=== PATIENT | male | born 1950 | race Caucasian/White ===

== ENCOUNTER 2017-02-05 17:36 | Inpatient (IN) | payer MEDICARE, OTHER ==
[~2017-02-05] VITALS: Ht 157.5 cm; Wt 59.9 kg
[2017-02-05] MEDS ORDERED: Vancomycin 1 GM in NS 275 ML IV ONE (17:45)
[2017-02-05] MEDS ORDERED: Ampicillin/Sulbactam Sod 3 GM in NS 110 ML IV SCH (17:45)
[2017-02-05] MEDS ORDERED: ZINC30 M1 GT (17:50)
[2017-02-05] MEDS ORDERED: ACETAMINOPHEN325 M1 GT (17:50)
[2017-02-05] MEDS ORDERED: MIDODRINE HCL10 MG GT (17:50)
[2017-02-05] MEDS ORDERED: MULTIVITAMINS1 EAC8 GT (17:50)
[2017-02-05] MEDS ORDERED: LEVETIRACETAM500 MG GT (17:50)
[2017-02-05] MEDS ORDERED: NORCO 10-325 T1 EACH GT (17:50)
[2017-02-05 17:52] VITALS: BP 113/65
[2017-02-05] MEDS ORDERED: Vancomycin 1gm inj IVPB ONE (17:55)
[2017-02-05] MEDS ORDERED: Unasyn 3gm Inj ONE (17:55)
[2017-02-05 18:08] LABS: ABG PCO2 42.6 mmHg (35.0-45.0)
[2017-02-05 18:09] LABS: KETONES,URINE NEGATIVE (NEGATIVE); LEUKOCYTE ESTERASE ,URINE 3+ (NEGATIVE); NITRITE,URINE POSITIVE (NEGATIVE); PH,URINE 9 (4.5-8.0); PROTEIN,URINE 3+ (NEGATIVE); UROBILINOGEN,URINE NORMAL MG/DL (0.0-1.0)
[2017-02-05 18:09] LABS: ABG ALLEN TEST POSITIVE; ABG BASE EXCESS 4.6
[2017-02-05 18:10] LABS: APPEARANCE,URINE CLOUDY
[2017-02-05 18:24] LABS: BASOPHILS % (AUTO) 1.2 % (0.0-2.0); EOSINOPHILS % (AUTO) 7.9 % (0.0-3.0); LYMPHOCYTES % (AUTO) 15.1 % (20.0-45.0); MEAN CORPUSCULAR HEMOGLOBIN 26.7 PG (27.0-31.0); MEAN CORPUSCULAR HGB CONC 32.4 G/DL (32.0-36.0); MEAN CORPUSCULAR VOLUME 82 FL (80-99); MEAN PLATELET VOLUME 5.1 FL (6.5-10.1); MONOCYTES % (AUTO) 8.3 % (1.0-10.0); NEUTROPHILS % (AUTO) 67.6 % (45.0-75.0); PLATELET COUNT 258 K/UL (150-450); RED BLOOD COUNT 3.85 M/UL (4.70-6.10); WHITE BLOOD COUNT 11.1 K/UL (4.8-10.8)
[2017-02-05 18:26] LABS: ALANINE AMINOTRANSFERASE 51 U/L (3-41); ALBUMIN/GLOBULIN RATIO 0.5 (1.0-2.7); ANION GAP 9 (5-15); ASPARTATE AMINO TRANSFERASE 39 U/L (5-40); CALCIUM 9.7 mg/dL (8.6-10.2); CARBON DIOXIDE 28 mEQ/L (20-30); CHLORIDE 96 mEQ/L (98-107); CREATININE 0.4 mg/dL (0.7-1.2); GLOMERULAR FILTRATION RATE > 60 mL/min (>60); HEMOLYSIS 5; SODIUM 133 mEQ/L (135-145); TOTAL PROTEIN 8.3 g/dL (6.6-8.7); TROPONIN I < 0.30 ng/mL (<=0.30)
[2017-02-05 18:29] LABS: RBC,URINE 20-30 /HPF (0 - 0)
[2017-02-05 18:30] LABS: BACTERIA,URINE MANY /HPF; WBC,URINE 0-2 /HPF (0 - 0)
[2017-02-05 18:36] LABS: CKMB 3.9 ng/mL (< 6.7)
[2017-02-05 19:06] VITALS: BP 118/63
[2017-02-05 20:00] VITALS: BP 107/68
[2017-02-05 21:00] VITALS: BP 103/62
[2017-02-05 22:00] VITALS: BP 120/89
[2017-02-05] MEDS ORDERED: LORazepam 0.5mg tab GT PRN (22:00)
[2017-02-05] MEDS ORDERED: Acetaminophen 650mg/20.3ml GT PRN (22:00)
[2017-02-05] MEDS ORDERED: Norco 10mg/325mg tab GT PRN (22:00)
[2017-02-05 23:00] VITALS: BP 104/71
[2017-02-05] MEDS: metroNIDAZOLE 500mg tab GT SCH (23:00)
[2017-02-06] VITALS (17 sets, daily range): BP systolic 85–135; BP diastolic 46–70
[2017-02-06] MEDS ORDERED: Zosyn 4.5gm inj ONE (00:25)
[2017-02-06] MEDS: Zosyn 4.5gm q8h **Extended infusion IVPB SCH ×4 (00:31→08:13)
--- NOTE | 2017-02-06 01:31 | Emergency Room Report ---
History of Present Illness General Chief Complaint: General Complaint Source: Medical Record Present Illness HPI Patient is 66-year-old male brought in by EMS after increased fever decreased blood pressure. The patient prior history of multidrug-resistant infections to decubitus ulcers. Patient had been noted to have a prior history of tracheostomy and ventilator dependence. Patient was not verbal. Patient had gradually worsening blood pressure. Patient was brought in by EMS. Patient presented from nursing facility. The patient appears to have a rectal tube and had a previous persistent infections to decubitus ulcers. Allergies: Coded Allergies: No Known Allergies (Unverified , 02/05/17) Patient History Past Medical History: see triage record Reviewed Nursing Documentation: PMH: Agreed, PSxH: Agreed Nursing Documentation-PMH Past Medical History Deferred: Pt Cognitively Impaired Past Medical History: No History, Except For Hx Cardiac Problems: Yes Hx Hypertension: Yes Hx Cancer: No Hx Gastrointestinal Problems: Yes - PEG Hx Neurological Problems: Yes Hx Cerebrovascular Accident: Yes Hx Dementia: Yes Hx Alzheimer's Disease: Yes Hx Seizures: Yes Hx Paralysis: Yes Hx Memory Loss: Yes Hx Speech Problem: Yes Hx Aphasia: Yes Review of Systems All Other Systems: limited - by mental status Physical Exam Vital Signs Date Time Temp Pulse Resp B/P Pulse Ox O2 Delivery O2 Flow Rate FiO2 02/05/17 17:30 97.2 90 14 86/52 97 Mechanical Ventilator 02/05/17 17:49 30 General Appearance: moderate distress, thin, Chronically Ill ENT: dry mucus membranes Neck: limited range of motion Respiratory: decreased breath sounds Cardiovascular #1: no JVD, tachycardia Gastrointestinal: normal inspection, non tender, soft Musculoskeletal: decreased range of motion Neurologic: motor weakness Skin: other - decubitus ulcer Medical Decision Making Diagnostic Impression: Primary Impression: Sepsis associated hypotension Additional Impressions: Infected decubitus ulcer Tracheostomy dependence Chronic respiratory failure ER Course Patient presented for fever and hypotension. Differential diagnosis included wasn't limited to pneumonia, decubitus ulcer,urinary tract infection, drug fever , allergic reaction, sepsis, cholecystitis, among others.Because of complexity of patient's case laboratory testing and imaging studies were ordered.the patient noted have a fever. The patient was given IV fluid. The patient was noted to have improvement in his hypotension after initial IV fluids. Patient given IV antibiotics empirically. Laboratory studies were notable for normal lactic acid level. The patient's initial blood gas showed adequate oxygenation as well as the normal pH. Dr. Sandrine Jin was contacted for inpatient management. Labs Test 02/05/17 17:33 02/05/17 17:43 White Blood Count 11.1 K/UL (4.8-10.8) Red Blood Count 3.85 M/UL (4.70-6.10) Hemoglobin 10.3 G/DL (14.2-18.0) Hematocrit 31.7 % (42.0-52.0) Mean Corpuscular Volume 82 FL (80-99) Mean Corpuscular Hemoglobin 26.7 PG (27.0-31.0) Mean Corpuscular Hemoglobin Concent 32.4 G/DL (32.0-36.0) Red Cell Distribution Width 16.0 % (11.6-14.8) Platelet Count 258 K/UL (150-450) Mean Platelet Volume 5.1 FL (6.5-10.1) Neutrophils (%) (Auto) 67.6 % (45.0-75.0) Lymphocytes (%) (Auto) 15.1 % (20.0-45.0) Monocytes (%) (Auto) 8.3 % (1.0-10.0) Eosinophils (%) (Auto) 7.9 % (0.0-3.0) Basophils (%) (Auto) 1.2 % (0.0-2.0) Urine Color Yellow Urine Appearance Cloudy Urine pH 9 (4.5-8.0) Urine Specific [place] 1.010 (1.005-1.035) Urine Protein 3+ (NEGATIVE) Urine Glucose (UA) Negative (NEGATIVE) Urine Ketones Negative (NEGATIVE) Urine Occult Blood 5+ (NEGATIVE) Urine Nitrite Positive (NEGATIVE) Urine Bilirubin Negative (NEGATIVE) Urine Urobilinogen Normal MG/DL (0.0-1.0) Urine Leukocyte Esterase 3+ (NEGATIVE) Urine RBC 20-30 /HPF (0 - 0) Urine WBC 0-2 /HPF (0 - 0) Urine Squamous Epithelial Cells None /LPF (NONE/OCC) Urine Bacteria Many /HPF (NONE) Sodium Level 133 mEQ/L (135-145) Potassium Level 4.0 mEQ/L (3.4-4.9) Chloride Level 96 mEQ/L (98-107) Carbon Dioxide Level 28 mEQ/L (20-30) Anion Gap 9 (5-15) Blood Urea Nitrogen 25 mg/dL (7-23) Creatinine 0.4 mg/dL (0.7-1.2) Estimat Glomerular Filtration Rate > 60 mL/min (>60) Glucose Level 112 mg/dL (74-106) Lactic Acid Level 0.80 mmol/L (0.66-2.22) Calcium Level 9.7 mg/dL (8.6-10.2) Total Bilirubin < 0.2 mg/dL (0.0-1.2) Aspartate Amino Transf (AST/SGOT) 39 U/L (5-40) Alanine Aminotransferase (ALT/SGPT) 51 U/L (3-41) Alkaline Phosphatase 113 U/L (40-129) Total Creatine Kinase 114 U/L (38-174) Creatine Kinase MB 3.9 ng/mL (< 6.7) Creatine Kinase MB Relative Index 3.4 Troponin I < 0.30 ng/mL (<=0.30) Total Protein 8.3 g/dL (6.6-8.7) Albumin 3.0 g/dL (3.5-5.2) Globulin 5.3 g/dL Albumin/Globulin Ratio 0.5 (1.0-2.7) Arterial Blood pH 7.451 (7.350-7.450) Arterial Blood Partial Pressure CO2 42.6 mmHg (35.0-45.0) Arterial Blood Partial Pressure O2 118.1 mmHg (75.0-100.0) Arterial Blood HCO3 29.0 mmol/L (22.0-26.0) Arterial Blood Oxygen Saturation 97.8 % (92.0-98.0) Arterial Blood Base Excess 4.6 Chris Test Positive EKG Diagnostic Results Rate: normal Rhythm: NSR - 96 ST Segments: no acute changes Last Vital Signs Date Time Temp Pulse Resp B/P Pulse Ox O2 Delivery O2 Flow Rate FiO2 02/06/17 00:52 90 21 30 02/06/17 00:00 98.2 85/65 100 Mechanical Ventilator Status: unchanged Disposition: ADMITTED INPATIENT Condition: Serious Referrals: SANDRINE JIN (PCP) Ezekiel Marin Feb 06, 2017 01:31
[2017-02-06 05:02] LABS: EOSINOPHILS % (AUTO) 12.4 % (0.0-3.0); LYMPHOCYTES % (AUTO) 15.9 % (20.0-45.0); MEAN CORPUSCULAR HEMOGLOBIN 26.7 PG (27.0-31.0); MEAN CORPUSCULAR HGB CONC 32.5 G/DL (32.0-36.0); MEAN CORPUSCULAR VOLUME 82 FL (80-99); MEAN PLATELET VOLUME 5.5 FL (6.5-10.1); MONOCYTES % (AUTO) 9.3 % (1.0-10.0); NEUTROPHILS % (AUTO) 61.4 % (45.0-75.0); PLATELET COUNT 242 K/UL (150-450); RED BLOOD COUNT 3.24 M/UL (4.70-6.10)
[2017-02-06 05:23] LABS: CALCIUM 9.1 mg/dL (8.6-10.2); CARBON DIOXIDE 26 mEQ/L (20-30); CHLORIDE 103 mEQ/L (98-107); CREATININE 0.2 mg/dL (0.7-1.2); GLOMERULAR FILTRATION RATE > 60 mL/min (>60); HEMOLYSIS 2; SODIUM 138 mEQ/L (135-145)
[2017-02-06 05:52] LABS: ANION GAP 9 (5-15); POTASSIUM 3.8 mEQ/L (3.4-4.9)
[2017-02-06] MEDS: metroNIDAZOLE 500mg tab GT SCH ×4 (05:54→22:38)
[2017-02-06] MEDS ORDERED: Vancomycin 750mg/D5W 275ml IVPB SCH ×4 (07:00→20:00)
[2017-02-06] MEDS: Midodrine 10mg tab GT SCH ×3 (08:12→17:35)
[2017-02-06 08:26] LABS: ABG PCO2 37.3 mmHg (35.0-45.0)
[2017-02-06 08:27] LABS: ABG ALLEN TEST POSITIVE; ABG BASE EXCESS 2.1
--- NOTE | 2017-02-06 08:36 | Consultation ---
Consult Note Consult Note 66-year-old male brought in by EMS with noted fevers and decreased blood pressure. The patient prior history of multidrug-resistant infections to decubitus ulcers. Patient had been noted to have a prior history of tracheostomy and ventilator dependence. Patient overall non-verbal. Patient had gradually worsening blood pressure drop and was transferred. Patient was brought in by EMS. Patient presented from nursing facility. The patient care discussed in detail with the . Patient is chronically debilitated and bed bound. Patient recently with transfer to the SNF and had a stormy hospital course. Patient care discussed. Allergies/MEDS: reviewed No Known Allergies (Unverified , 02/05/17) Past Medical History: Respiratory failure, Tracheostomy, CVA, PEG, Dementia, seizures, aphasia, orthostatic hypotension Reviewed of systems: unable Physical exam: WDWN NAD clear breath sounds bilaterally without rhonchi or wheeze [id number] without MRG NABS nontender no HSM, GT no CCE contractures nonfocal Laboratory Tests Test 02/05/17 17:33 02/05/17 17:43 02/06/17 03:57 02/06/17 08:18 White Blood Count 11.1 K/UL (4.8-10.8) H 8.0 K/UL (4.8-10.8) Red Blood Count 3.85 M/UL (4.70-6.10) L 3.24 M/UL (4.70-6.10) L Hemoglobin 10.3 G/DL (14.2-18.0) L 8.6 G/DL (14.2-18.0) L Hematocrit 31.7 % (42.0-52.0) L 26.6 % (42.0-52.0) L Mean Corpuscular Volume 82 FL (80-99) 82 FL (80-99) Mean Corpuscular Hemoglobin 26.7 PG (27.0-31.0) L 26.7 PG (27.0-31.0) L Mean Corpuscular Hemoglobin Concent 32.4 G/DL (32.0-36.0) 32.5 G/DL (32.0-36.0) Red Cell Distribution Width 16.0 % (11.6-14.8) H 16.0 % (11.6-14.8) H Platelet Count 258 K/UL (150-450) 242 K/UL (150-450) Mean Platelet Volume 5.1 FL (6.5-10.1) L 5.5 FL (6.5-10.1) L Neutrophils (%) (Auto) 67.6 % (45.0-75.0) 61.4 % (45.0-75.0) Lymphocytes (%) (Auto) 15.1 % (20.0-45.0) L 15.9 % (20.0-45.0) L Monocytes (%) (Auto) 8.3 % (1.0-10.0) 9.3 % (1.0-10.0) Eosinophils (%) (Auto) 7.9 % (0.0-3.0) H 12.4 % (0.0-3.0) H Basophils (%) (Auto) 1.2 % (0.0-2.0) 1.0 % (0.0-2.0) Urine Color Yellow Urine Appearance Cloudy Urine pH 9 (4.5-8.0) Urine Specific [place] 1.010 (1.005-1.035) Urine Protein 3+ (NEGATIVE) H Urine Glucose (UA) Negative (NEGATIVE) Urine Ketones Negative (NEGATIVE) Urine Occult Blood 5+ (NEGATIVE) H Urine Nitrite Positive (NEGATIVE) H Urine Bilirubin Negative (NEGATIVE) Urine Urobilinogen Normal MG/DL (0.0-1.0) Urine Leukocyte Esterase 3+ (NEGATIVE) H Urine RBC 20-30 /HPF (0 - 0) H Urine WBC 0-2 /HPF (0 - 0) Urine Squamous Epithelial Cells None /LPF (NONE/OCC) Urine Bacteria Many /HPF (NONE) H Sodium Level 133 mEQ/L (135-145) L 138 mEQ/L (135-145) Potassium Level 4.0 mEQ/L (3.4-4.9) 3.8 mEQ/L (3.4-4.9) Chloride Level 96 mEQ/L (98-107) L 103 mEQ/L (98-107) Carbon Dioxide Level 28 mEQ/L (20-30) 26 mEQ/L (20-30) Anion Gap 9 (5-15) 9 (5-15) Blood Urea Nitrogen 25 mg/dL (7-23) H 18 mg/dL (7-23) Creatinine 0.4 mg/dL (0.7-1.2) L 0.2 mg/dL (0.7-1.2) L Estimat Glomerular Filtration Rate > 60 mL/min (>60) > 60 mL/min (>60) Glucose Level 112 mg/dL (74-106) H 108 mg/dL (74-106) H Lactic Acid Level 0.80 mmol/L (0.66-2.22) 0.70 mmol/L (0.66-2.22) Calcium Level 9.7 mg/dL (8.6-10.2) 9.1 mg/dL (8.6-10.2) Total Bilirubin < 0.2 mg/dL (0.0-1.2) Aspartate Amino Transf (AST/SGOT) 39 U/L (5-40) Alanine Aminotransferase (ALT/SGPT) 51 U/L (3-41) H Alkaline Phosphatase 113 U/L (40-129) Total Creatine Kinase 114 U/L (38-174) Creatine Kinase MB 3.9 ng/mL (< 6.7) Creatine Kinase MB Relative Index 3.4 Troponin I < 0.30 ng/mL (<=0.30) Total Protein 8.3 g/dL (6.6-8.7) Albumin 3.0 g/dL (3.5-5.2) L Globulin 5.3 g/dL Albumin/Globulin Ratio 0.5 (1.0-2.7) L Arterial Blood pH 7.451 (7.350-7.450) 7.460 (7.350-7.450) Arterial Blood Partial Pressure CO2 42.6 mmHg (35.0-45.0) 37.3 mmHg (35.0-45.0) Arterial Blood Partial Pressure O2 118.1 mmHg (75.0-100.0) H 150.7 mmHg (75.0-100.0) H Arterial Blood HCO3 29.0 mmol/L (22.0-26.0) H 25.9 mmol/L (22.0-26.0) Arterial Blood Oxygen Saturation 97.8 % (92.0-98.0) 98.6 % (92.0-98.0) H Arterial Blood Base Excess 4.6 2.1 Chris Test Positive Positive IMPRESSION Respiratory Failure Trach Contractures multiple decubs GT Seizure disorder moderate protein calorie malnutrition chronic encephalopathy anemia PLAN care noted IV antibiotics respiratory care Ventilatory care noted SNF meds supportive care suction ID evaluation wound care oxygen therapy prognosis guarded d/w in detail medications/laboratory data/nursing notes/ICU care reviewed in detail note reviewed and edited care discussed with RN and RT ICU time spent minutes SANDRINE WEI Feb 06, 2017 08:36
[2017-02-06] MEDS ORDERED: Magnesium Oxide 400mg tab GT SCH (09:00)
[2017-02-06] MEDS ORDERED: Multivitamins W/Minerals 15 ML UDC GT SCH (09:00)
[2017-02-06] MEDS ORDERED: Heparin 5000 units/ml inj SUBQ SCH (09:00)
[2017-02-06] MEDS ORDERED: Zinc Sulfate 220mg cap GT SCH (09:00)
[2017-02-06] MEDS ORDERED: Ascorbic Acid 500mg tab GT SCH (09:00)
--- NOTE | 2017-02-06 10:38 | Diagnostic Imaging Report ---
Indication: Shortness of breath Technique: XRAY CHEST 1 V Comparison: None Findings: Tracheostomy is seen. Cardiomediastinal silhouette is within normal limits. Mild bilateral interstitial edema/infiltrates are noted. Generative changes of the spine are seen. Impression: Mild interstitial edema or infiltrates. Clinical correlation/followup recommended.
--- NOTE | 2017-02-06 10:47 | Diagnostic Imaging Report ---
Indication: Shortness of breath Technique: XRAY CHEST 1 V Comparison: 02/05/17 Findings: Tracheostomy is seen. Cardiomediastinal silhouette is stable. Lungs are unchanged without new infiltrates. Osseous structures are stable. Impression: No interval change from 02/05/17.
--- NOTE | 2017-02-06 12:00 | History and Physical Report ---
DATE OF ADMISSION: 02/05/2017 CHIEF COMPLAINT: Sepsis, respiratory failure, and toxic metabolic encephalopathy. HISTORY OF PRESENT ILLNESS: The patient is an unfortunate 66-year-old male, who has a prior history of chronic respiratory failure, trach and vent dependent, anoxic encephalopathy, multiple decubitus ulcers, DVT, history of stroke, protein malnutrition, anemia, and seizure disorder. He has a history of DVT, status post IVC filter. He was transferred from the [facility] nursing facility with complaints of fever and hypotension. On evaluation in the emergency room, the patient is noted to have white count of 11,000. The patient was started on IV fluids for his hypotension. Broad-spectrum IV antibiotics also initiated. The patient has pancultures and is now admitted for further evaluation and care. PAST MEDICAL HISTORY: As above. PAST SURGICAL HISTORY: Includes a history of tracheostomy, G-tube, and IVC filter. CURRENT MEDICATIONS: Reconciled and reviewed. ALLERGIES: None. FAMILY HISTORY: Unknown. SOCIAL HISTORY: There is no known history of tobacco, ethanol, or drugs. The patient is a Full Code. REVIEW OF SYSTEMS: From the patient is unobtainable as he is nonverbal at baseline. PHYSICAL EXAMINATION: VITAL SIGNS: Temperature is 98.9 degrees, pulse 94, respirations 15, and blood pressure 135/63. GENERAL: The patient is a chronic ill-appearing male, in no apparent distress. He is poorly responsive. His eyes are open, but he does not tract or follow commands. NECK: Supple. Trach site is clean. HEART: Regular rate and rhythm. LUNGS: Lungs are clear. ABDOMEN: Soft, nontender, and nondistended. EXTREMITIES: Without clubbing or cyanosis. The patient has multiple wounds including a large one over the left hip with some slough. PERTINENT DATA: White count was 11, hemoglobin 10, hematocrit 31, and platelets 258,00. Sodium is , potassium 4, chloride 96, bicarbonate 28, BUN 25, and creatinine is 0.4. UA showed 0 to 2 WBCs. Chest x-ray results are currently pending. ASSESSMENT: This is an unfortunate male with a history of anoxic encephalopathy, dementia, chronic respiratory failure, history of deep vein thrombosis, status post inferior vena cava filter, dementia, and functional quadriplegia, admitted with complaints of fevers, hypotension, and sepsis, unclear etiology. X-ray results are currently pending. Would not be surprised if the patient had pneumonia and also the left hip wound has a lot of slough and there may be superinfection of the wound. PLAN: Broad-spectrum IV antibiotics. Infectious Disease consultation. Consider for wound debridement. Continue G-tube feeds. Continue vent support. Continue respiratory treatments. Kirill Moody M.D. DR: ERYN JOB#: [id number] CC:
--- NOTE | 2017-02-06 12:00 | Consultation ---
DATE OF CONSULTATION: 02/06/2017 INFECTIOUS DISEASES CONSULTATION CONSULTING PHYSICIAN: Stefania Calix M.D. REFERRING PHYSICIAN: Eitan Jin M.D. REASON FOR CONSULTATION: Septic shock. HISTORY OF PRESENTING ILLNESS: This is a 66-year-old gentleman with history of respiratory failure, status post tracheostomy, CVA, dementia, and seizures, who came in [facility] with hypot[facility]. He seen in [facility]. He has had multiple decubitus ulcers. An Infectious Diseases consultation has been obtained for antibiotics. PAST MEDICAL HISTORY: 1. History of respiratory failure, status post tracheostomy. 2. Hypertension. 3. Status post G-tube placement. 4. CVA. 5. Dementia. 6. Seizures. SOCIAL HISTORY: Unknown. FAMILY HISTORY: Unknown. REVIEW OF SYSTEMS: Unable to obtain currently. MEDICATIONS: As an inpatient, the patient is on Prevacid, Keppra, midodrine, multivitamin, ascorbic acid, zinc sulfate, subcutaneous heparin, magnesium oxide, IV vancomycin, Zosyn, Flagyl, Tylenol, [place], Ativan, and Zofran. ALLERGIES: No known drug allergies. PHYSICAL EXAMINATION: VITAL SIGNS: Temperature of 98.9 and T-max of 99.1, pulse of 85, respiratory rate of 19, blood pressure 121/65, and O2 saturation of 100%. HEENT: Pupils are equally reactive to light and accommodation. Mouth appears clean without thrush. NECK: Supple. No adenopathy. No JVD. CARDIOVASCULAR: Regular rate and rhythm. No murmurs. LUNGS: Clear to auscultation bilaterally. No crackles. No wheezes. But I mentioned tracheostomy site is clean. ABDOMEN: Soft and nontender. G-tube site appears clean. EXTREMITIES: No cyanosis, no clubbing, no edema. SKIN: Sacral decubitus ulcer noted which is clean. LABORATORY AND DIAGNOSTIC DATA: White count of 8, hemoglobin 8.6, hematocrit 26.6, MCV 82, and platelet count of 242,000 with neutrophils of 61%. Sodium 138, potassium 3.8, chloride 103, bicarb 26, BUN 18, creatinine 0.2, glucose 108, and calcium 9.1. Total bilirubin less than 0.2, AST 39, ALT 51, and alkaline phosphatase 113. CK 114. CK-MB 3.9. Troponin less than 0.3. Total protein 8.3. Albumin of 3. UA showing 0 to 2 white cells. Urine culture growing gram-negative rods more than 100,000 colonies. Chest x-ray showing mild interstitial edema or infiltrate. ASSESSMENT: This is a 66-year-old gentleman with history of respiratory failure, status post tracheostomy and seizures who comes in with: 1. Gram-negative urinary tract infection. 2. We would be concerned regarding sepsis secondary to urinary tract infection. 3. He could also have an aspiration pneumonia. PLAN: 1. Continue vancomycin, Zosyn, and Flagyl. 2. We will follow up cultures and adjust antibiotics accordingly. I would like to thank, Dr. Jin for this consultation. Stefania Calix M.D. DR: ALCON JOB#: [id number] CC:
[2017-02-06] MEDS: Piperacillin/Tazobactam 4.5 GM in D5W 110 ML IVPB SCH (15:48)
[2017-02-06] MEDS ORDERED: LORazepam 0.5mg tab GT PRN (16:00)
[2017-02-06] MEDS ORDERED: Acetaminophen 650mg/20.3ml GT PRN (18:00)
[2017-02-06] MEDS ORDERED: Vancomycin 750 MG in D5W 275 ML IVPB SCH (20:00)
[2017-02-06] MEDS ORDERED: Norco 10mg/325mg tab GT PRN (21:00)
[2017-02-06] MEDS: Heparin 5000 units/ml inj SUBQ SCH (21:59)
[2017-02-07] VITALS (7 sets, daily range): BP systolic 91–130; BP diastolic 48–71
[2017-02-07] MEDS: Piperacillin/Tazobactam 4.5 GM in D5W 110 ML IVPB SCH ×4 (00:08→23:39)
[2017-02-07] MEDS: metroNIDAZOLE 500mg tab GT SCH ×3 (06:13→21:13)
--- NOTE | 2017-02-07 08:07 | Pulmonology Progress Note ---
Assessment/Plan Assessment/Plan IMPRESSION Respiratory Failure Trach Contractures multiple decubs GT Seizure disorder moderate protein calorie malnutrition chronic encephalopathy anemia UTI PLAN care noted and discussed IV antibiotics respiratory care Ventilatory care noted SNF meds supportive care suction ID evaluation noted wound care as is rectal tube oxygen therapy prognosis guarded d/w in detail Subjective Allergies: Coded Allergies: No Known Allergies (Unverified , 02/05/17) Subjective care noted d/w transferred to [facility] Objective Last 24 Hour Vital Signs Date Time Temp Pulse Resp B/P Pulse Ox O2 Delivery O2 Flow Rate FiO2 02/07/17 06:45 81 14 28 02/07/17 05:23 83 17 28 02/07/17 04:00 28 02/07/17 04:00 98.6 83 20 127/62 100 Mechanical Ventilator 02/07/17 04:00 83 02/07/17 03:07 86 19 28 02/07/17 00:58 83 17 28 02/07/17 00:00 81 02/07/17 00:00 81 15 28 02/07/17 00:00 28 02/06/17 23:32 98.1 82 20 97/55 100 Mechanical Ventilator 02/06/17 21:30 85 15 28 02/06/17 20:00 80 02/06/17 20:00 98.7 93 20 91/49 100 Mechanical Ventilator 02/06/17 20:00 28 02/06/17 19:13 81 15 Mechanical Ventilator 02/06/17 19:09 81 15 28 02/06/17 17:20 79 16 28 02/06/17 16:55 83 02/06/17 15:56 28 02/06/17 15:56 85 20 108/70 100 Mechanical Ventilator 02/06/17 15:20 80 15 28 02/06/17 13:20 86 16 28 02/06/17 13:00 85 19 122/65 100 Mechanical Ventilator 02/06/17 12:00 98.4 86 16 106/51 100 Mechanical Ventilator 02/06/17 12:00 28 02/06/17 12:00 86 02/06/17 11:10 88 15 28 02/06/17 11:00 85 19 121/65 100 Mechanical Ventilator 02/06/17 10:00 79 18 114/48 100 Mechanical Ventilator 02/06/17 09:10 87 16 28 02/06/17 09:00 89 17 110/53 100 Mechanical Ventilator 28 Intake and Output 02/06/17 02/07/17 19:00 07:00 Intake Total 2030.0 ml 2333.316 ml Output Total 880 ml 1300 ml Balance 1150.0 ml 1033.316 ml Free Water 150 ml IV Total 1340.0 ml 1633.316 ml Tube Feeding 600 ml 550 ml Other 90 ml Output Urine Total 880 ml 1300 ml Objective WDWN chronically ill NAD coarse breath sounds bilaterally without rhonchi or wheeze [id number] without MRG NABS nontender no HSM; GT no CCE contractures trach nonfocal Microbiology Date/Time Source Procedure Growth Status 02/05/17 17:33 Blood Blood Culture - Preliminary NO GROWTH AFTER 24 HOURS Resulted 02/05/17 17:23 Blood Blood Culture - Preliminary NO GROWTH AFTER 24 HOURS Resulted 02/05/17 17:33 Urine,Clean Catch Urine Culture - Preliminary Gram Negative Esteban Resulted Laboratory Tests 02/06/17 08:18: Arterial Blood pH 7.460H, Arterial Blood Partial Pressure CO2 37.3, Arterial Blood Partial Pressure O2 150.7H, Arterial Blood HCO3 25.9, Arterial Blood Oxygen Saturation 98.6H, Arterial Blood Base Excess 2.1, Chris Test Positive 02/07/17 07:30: Vancomycin Level Trough [Pending] Current Medications Medications (Trade) Dose Ordered Sig/Mehdi Route PRN Reason Start Time Stop Time Status Last Admin Dose Admin Acetaminophen (Tylenol) 650 mg EVERY 6 HOURS PRN GT mild pain 02/06/17 18:00 03/08/17 17:59 Acetaminophen/ Hydrocodone Bitart ([place] 10/325) 1 ea EVERY 12 HOURS PRN GT Pain Scale (6-10) 02/06/17 21:00 02/13/17 20:59 Ascorbic Acid (Vitamin C) 500 mg DAILY GT 02/07/17 09:00 03/09/17 08:59 Heparin Sodium (Porcine) (Heparin 5000 units/ml) 5,000 units EVERY 12 HOURS SUBQ 02/06/17 21:00 03/08/17 20:59 02/06/17 21:59 Lansoprazole (Prevacid) 30 mg Q12HR GT 02/06/17 21:00 03/08/17 20:59 02/06/17 21:55 Levetiracetam (Keppra) 500 mg Q12HR GT 02/06/17 21:00 03/08/17 20:59 02/06/17 21:55 Lorazepam (Ativan) 0.5 mg Q6H PRN GT For Anxiety 02/06/17 16:00 02/13/17 15:59 Magnesium Oxide (Mag-Ox 400mg) 400 mg DAILY GT 02/07/17 09:00 03/09/17 08:59 Metronidazole (Flagyl) 500 mg Q8HR GT 02/06/17 14:00 02/13/17 13:59 02/07/17 06:13 Midodrine (Pro-Amatine) 10 mg THREE TIMES A DAY GT 02/06/17 18:00 03/08/17 17:59 02/06/17 17:35 Multivitamins (Multivitamins W/ Minerals 15ml Liquid) 5 ml DAILY GT 02/07/17 09:00 03/09/17 08:59 Ondansetron HCl (Zofran ODT) 4 mg Q6H PRN ORAL Nausea & Vomiting 02/06/17 16:00 03/08/17 15:59 Piperacillin Sod/ Tazobactam Sod 4.5 gm/Dextrose 110 ml @ 27.5 mls/hr Q8H IVPB 02/06/17 16:00 02/13/17 15:59 02/07/17 00:08 Sodium Chloride 1,000 ml @ 100 mls/hr Q10H IV 02/06/17 13:45 03/08/17 13:44 02/07/17 00:09 Vancomycin HCl (Vanco rx to dose) 1 ea DAILY PRN MISC Per rx protocol 02/07/17 09:00 03/09/17 08:59 Vancomycin HCl/ Dextrose (Vancomycin/D5W) 275 ml @ 183.708 mls/hr Q12HR@0800,2000 IVPB 02/06/17 20:00 02/11/17 19:59 02/06/17 21:55 Zinc Sulfate (Zinc Sulfate) 220 mg DAILY GT 02/07/17 09:00 03/09/17 08:59 SANDRINE WEI Feb 07, 2017 08:07
--- NOTE | 2017-02-07 08:24 | General Progress Note ---
Assessment/Plan Problem List: (1) Toxic metabolic encephalopathy ICD Codes: G92 - Toxic encephalopathy SNOMED: 647280852 (2) Chronic respiratory failure ICD Codes: J96.10 - Chronic respiratory failure, unspecified whether with hypoxia or hypercapnia SNOMED: 00176678, 49821771 (3) Tracheostomy dependence ICD Codes: Z93.0 - Tracheostomy status SNOMED: 585215318, 953045157 (4) Infected decubitus ulcer ICD Codes: L89.90 - Pressure ulcer of unspecified site, unspecified stage; L08.9 - Local infection of the skin and subcutaneous tissue, unspecified SNOMED: 749979744, 91174284 (5) Sepsis associated hypotension ICD Codes: A41.9 - Sepsis, unspecified organism SNOMED: 41695914 Status: stable Assessment/Plan iv abx follow up cultures vent resp rx gt feeds wound care message left for dr man Subjective ROS Limited/Unobtainable: Yes Constitutional: Reports: malaise, weakness HEENT: Reports: no symptoms Cardiovascular: Reports: no symptoms Respiratory: Reports: no symptoms Gastrointestinal/Abdominal: Reports: difficulty swallowing Genitourinary: Reports: no symptoms Neurologic/Psychiatric: Reports: pre-existing deficit Endocrine: Reports: no symptoms Hematologic/Lymphatic: Reports: anemia Allergies: Coded Allergies: No Known Allergies (Unverified , 02/05/17) All Systems: reviewed and negative except above Subjective no events. no fevers. ID and pulm noted. on feeds and the vent. Objective Last 24 Hour Vital Signs Date Time Temp Pulse Resp B/P Pulse Ox O2 Delivery O2 Flow Rate FiO2 02/07/17 08:08 97.9 83 15 118/52 100 Mechanical Ventilator 02/07/17 06:45 81 14 28 02/07/17 06:45 83 14 Mechanical Ventilator 02/07/17 05:23 83 17 28 02/07/17 04:00 28 02/07/17 04:00 98.6 83 20 127/62 100 Mechanical Ventilator 02/07/17 04:00 83 02/07/17 03:07 86 19 28 02/07/17 00:58 83 17 28 02/07/17 00:00 81 02/07/17 00:00 81 15 28 02/07/17 00:00 28 02/06/17 23:32 98.1 82 20 97/55 100 Mechanical Ventilator 28 02/06/17 21:30 85 15 28 02/06/17 20:00 80 02/06/17 20:00 98.7 93 20 91/49 100 Mechanical Ventilator 28 02/06/17 20:00 28 02/06/17 19:13 81 15 Mechanical Ventilator 28 02/06/17 19:09 81 15 28 02/06/17 17:20 79 16 28 02/06/17 16:55 83 02/06/17 15:56 28 02/06/17 15:56 85 20 108/70 100 Mechanical Ventilator 28 02/06/17 15:20 80 15 28 02/06/17 13:20 86 16 28 02/06/17 13:00 85 19 122/65 100 Mechanical Ventilator 28 02/06/17 12:00 98.4 86 16 106/51 100 Mechanical Ventilator 28 02/06/17 12:00 28 02/06/17 12:00 86 02/06/17 11:10 88 15 28 02/06/17 11:00 85 19 121/65 100 Mechanical Ventilator 28 02/06/17 10:00 79 18 114/48 100 Mechanical Ventilator 28 02/06/17 09:10 87 16 28 02/06/17 09:00 89 17 110/53 100 Mechanical Ventilator 28 Intake and Output 02/06/17 02/07/17 19:00 07:00 Intake Total 2030.0 ml 2333.316 ml Output Total 880 ml 1300 ml Balance 1150.0 ml 1033.316 ml Free Water 150 ml IV Total 1340.0 ml 1633.316 ml Tube Feeding 600 ml 550 ml Other 90 ml Output Urine Total 880 ml 1300 ml Laboratory Tests 02/07/17 07:30: Vancomycin Level Trough [Pending] Height (Feet): 5 Height (Inches): 2.00 Weight (Pounds): 121 General Appearance: lethargic, confused, cachetic, thin Neck: supple Cardiovascular: regular rhythm Respiratory/Chest: chest wall non-tender, lungs clear, normal breath sounds Abdomen: normal bowel sounds, non tender, soft, no organomegaly Edema: no edema noted Arm (L), no edema noted Arm (R), no edema noted Leg (L), no edema noted Leg (R), no edema noted Pedal (L), no edema noted Pedal (R), no edema noted Generalized Neurologic: unresponsive, aphasia Skin: other - multiple wounds. reviewed pictures in emr BRENDA VELASQUEZ Feb 07, 2017 08:24
--- NOTE | 2017-02-07 08:47 | Infectious Diseases Prog Note ---
Assessment/Plan Assessment/Plan A: Sepsis Complicated UTI ? pneumonia Chronic respiratory failure Multiple pressure ulcers Anemia P: continue Zosyn & Vancomycin will f/u cultures Subjective ROS Limited/Unobtainable: Yes Allergies: Coded Allergies: No Known Allergies (Unverified , 02/05/17) Objective Vital Signs Last 24 Hour Vital Signs Date Time Temp Pulse Resp B/P Pulse Ox O2 Delivery O2 Flow Rate FiO2 02/07/17 08:08 97.9 83 15 118/52 100 Mechanical Ventilator 28 02/07/17 06:45 81 14 28 02/07/17 06:45 83 14 Mechanical Ventilator 28 02/07/17 05:23 83 17 28 02/07/17 04:00 28 02/07/17 04:00 98.6 83 20 127/62 100 Mechanical Ventilator 02/07/17 04:00 83 02/07/17 03:07 86 19 28 02/07/17 00:58 83 17 28 02/07/17 00:00 81 02/07/17 00:00 81 15 28 02/07/17 00:00 28 02/06/17 23:32 98.1 82 20 97/55 100 Mechanical Ventilator 28 02/06/17 21:30 85 15 28 02/06/17 20:00 80 02/06/17 20:00 98.7 93 20 91/49 100 Mechanical Ventilator 02/06/17 20:00 28 02/06/17 19:13 81 15 Mechanical Ventilator 02/06/17 19:09 81 15 28 02/06/17 17:20 79 16 28 02/06/17 16:55 83 02/06/17 15:56 28 02/06/17 15:56 85 20 108/70 100 Mechanical Ventilator 02/06/17 15:20 80 15 28 02/06/17 13:20 86 16 28 02/06/17 13:00 85 19 122/65 100 Mechanical Ventilator 02/06/17 12:00 98.4 86 16 106/51 100 Mechanical Ventilator 02/06/17 12:00 28 02/06/17 12:00 86 02/06/17 11:10 88 15 28 02/06/17 11:00 85 19 121/65 100 Mechanical Ventilator 02/06/17 10:00 79 18 114/48 100 Mechanical Ventilator 28 02/06/17 09:10 87 16 28 02/06/17 09:00 89 17 110/53 100 Mechanical Ventilator 28 Height (Feet): 5 Height (Inches): 2.00 Weight (Pounds): 121 HEENT: status post trach Respiratory/Chest: lungs clear Cardiovascular: normal rate Abdomen: soft, non tender, other - GT feeding Extremities: no edema, other - contracted extremities Skin: ulcers Neurologic/Psychiatric: other - opens eyes only Musculoskeletal: atrophy Microbiology Date/Time Source Procedure Growth Status 02/05/17 17:33 Blood Blood Culture - Preliminary NO GROWTH AFTER 24 HOURS Resulted 02/05/17 17:23 Blood Blood Culture - Preliminary NO GROWTH AFTER 24 HOURS Resulted 02/05/17 17:33 Urine,Clean Catch Urine Culture - Preliminary Gram Negative Esteban Resulted 02/05/17 22:00 Sacral Swab Gram Stain - Final Resulted 02/05/17 22:00 Sacral Swab Wound Culture Pending Resulted Laboratory Tests Test 02/07/17 07:30 Vancomycin Level Trough 8.5 ug/mL (5.0-12.0) Current Medications Medications (Trade) Dose Ordered Sig/Mehdi Route PRN Reason Start Time Stop Time Status Last Admin Dose Admin Acetaminophen (Tylenol) 650 mg EVERY 6 HOURS PRN GT mild pain 02/06/17 18:00 03/08/17 17:59 Acetaminophen/ Hydrocodone Bitart ([place] 10/325) 1 ea EVERY 12 HOURS PRN GT Pain Scale (6-10) 02/06/17 21:00 02/13/17 20:59 Ascorbic Acid (Vitamin C) 500 mg DAILY GT 02/07/17 09:00 03/09/17 08:59 Heparin Sodium (Porcine) (Heparin 5000 units/ml) 5,000 units EVERY 12 HOURS SUBQ 02/06/17 21:00 03/08/17 20:59 02/06/17 21:59 Lansoprazole (Prevacid) 30 mg Q12HR GT 02/06/17 21:00 03/08/17 20:59 02/06/17 21:55 Levetiracetam (Keppra) 500 mg Q12HR GT 02/06/17 21:00 03/08/17 20:59 02/06/17 21:55 Lorazepam (Ativan) 0.5 mg Q6H PRN GT For Anxiety 02/06/17 16:00 02/13/17 15:59 Magnesium Oxide (Mag-Ox 400mg) 400 mg DAILY GT 02/07/17 09:00 03/09/17 08:59 Metronidazole (Flagyl) 500 mg Q8HR GT 02/06/17 14:00 02/13/17 13:59 02/07/17 06:13 Midodrine (Pro-Amatine) 10 mg THREE TIMES A DAY GT 02/06/17 18:00 03/08/17 17:59 02/06/17 17:35 Multivitamins (Multivitamins W/ Minerals 15ml Liquid) 5 ml DAILY GT 02/07/17 09:00 03/09/17 08:59 Ondansetron HCl (Zofran ODT) 4 mg Q6H PRN ORAL Nausea & Vomiting 02/06/17 16:00 03/08/17 15:59 Piperacillin Sod/ Tazobactam Sod 4.5 gm/Dextrose 110 ml @ 27.5 mls/hr Q8H IVPB 02/06/17 16:00 02/13/17 15:59 02/07/17 00:08 Sodium Chloride 1,000 ml @ 100 mls/hr Q10H IV 02/06/17 13:45 03/08/17 13:44 02/07/17 00:09 Vancomycin HCl (Vanco rx to dose) 1 ea DAILY PRN MISC Per rx protocol 02/07/17 09:00 03/09/17 08:59 Vancomycin HCl/ Dextrose (Vancomycin/D5W) 275 ml @ 183.708 mls/hr Q12HR@0800,2000 IVPB 02/06/17 20:00 02/11/17 19:59 02/06/17 21:55 Zinc Sulfate (Zinc Sulfate) 220 mg DAILY GT 02/07/17 09:00 03/09/17 08:59 RONI RODRIGUEZ Feb 07, 2017 08:47
[2017-02-07] MEDS: Multivitamins W/Minerals 15 ML UDC GT SCH (09:43)
[2017-02-07] MEDS: Magnesium Oxide 400mg tab GT SCH (09:44)
[2017-02-07] MEDS: Zinc Sulfate 220mg cap GT SCH (09:44)
[2017-02-07] MEDS: Midodrine 10mg tab GT SCH ×3 (09:44→18:33)
[2017-02-07] MEDS: Ascorbic Acid 500mg tab GT SCH (09:44)
[2017-02-07] MEDS: Heparin 5000 units/ml inj SUBQ SCH ×2 (09:45→21:15)
[2017-02-07] MEDS: Vancomycin 1 GM in D5W 275 ML IVPB SCH ×2 (10:53→21:14)
[2017-02-07] MEDS ORDERED: NS 275ml ONE (15:13)
[2017-02-07] MEDS ORDERED: Tubing IV Secondary IV ONE (15:13)
--- NOTE | 2017-02-07 17:11 | Cardiology Report ---
APPROVED REPORT EKG Measurement Heart [id number] Normal sinus rhythm Right atrial enlargement Borderline ECG
[2017-02-07] MEDS ORDERED: Midodrine 10mg tab GT SCH (22:00)
[2017-02-07] MEDS: Midodrine 10mg tab ORAL SCH (23:39)
[2017-02-08 04:00] VITALS: BP 97/56
[2017-02-08] MEDS: Midodrine 10mg tab ORAL SCH ×3 (05:53→21:53)
[2017-02-08] MEDS: metroNIDAZOLE 500mg tab GT SCH (05:53)
[2017-02-08] MEDS: Piperacillin/Tazobactam 4.5 GM in D5W 110 ML IVPB SCH ×2 (07:17→16:18)
[2017-02-08 08:00] VITALS: BP 94/56
[2017-02-08] MEDS: Ascorbic Acid 500mg tab GT SCH (09:10)
[2017-02-08] MEDS: Zinc Sulfate 220mg cap GT SCH (09:10)
[2017-02-08] MEDS: Magnesium Oxide 400mg tab GT SCH (09:11)
[2017-02-08] MEDS: Heparin 5000 units/ml inj SUBQ SCH ×2 (09:12→20:33)
[2017-02-08] MEDS: Multivitamins W/Minerals 15 ML UDC GT SCH (09:15)
[2017-02-08] MEDS: Vancomycin 1 GM in D5W 275 ML IVPB SCH (09:15)
[2017-02-08] MEDS ORDERED: NS 275ml ONE (10:16)
--- NOTE | 2017-02-08 10:43 | General Progress Note ---
Assessment/Plan Problem List: (1) Toxic metabolic encephalopathy ICD Codes: G92 - Toxic encephalopathy SNOMED: 778311022 (2) Chronic respiratory failure ICD Codes: J96.10 - Chronic respiratory failure, unspecified whether with hypoxia or hypercapnia SNOMED: 18017051, 88113430 (3) Tracheostomy dependence ICD Codes: Z93.0 - Tracheostomy status SNOMED: 493148738, 587293655 (4) Infected decubitus ulcer ICD Codes: L89.90 - Pressure ulcer of unspecified site, unspecified stage; L08.9 - Local infection of the skin and subcutaneous tissue, unspecified SNOMED: 044231132, 63062181 (5) Sepsis associated hypotension ICD Codes: A41.9 - Sepsis, unspecified organism SNOMED: 26716566 Status: stable, progressing Assessment/Plan iv abx follow up cultures vent resp rx gt feeds wound care poor prognosis Subjective ROS Limited/Unobtainable: Yes Constitutional: Reports: malaise, weakness HEENT: Reports: no symptoms Cardiovascular: Reports: no symptoms Respiratory: Reports: cough Gastrointestinal/Abdominal: Reports: difficulty swallowing Genitourinary: Reports: no symptoms Neurologic/Psychiatric: Reports: pre-existing deficit Endocrine: Reports: no symptoms Hematologic/Lymphatic: Reports: anemia Allergies: Coded Allergies: No Known Allergies (Unverified , 02/05/17) All Systems: reviewed and negative except above Subjective no events. no fevers. ID and pulm noted. on feeds and the vent.contracted. Objective Last 24 Hour Vital Signs Date Time Temp Pulse Resp B/P Pulse Ox O2 Delivery O2 Flow Rate FiO2 02/08/17 08:37 92 18 28 02/08/17 08:00 98.0 20 94/56 100 Mechanical Ventilator 02/08/17 08:00 92 02/08/17 08:00 28 02/08/17 06:40 84 15 28 02/08/17 05:20 86 16 28 02/08/17 04:00 97.5 95 22 97/56 99 Mechanical Ventilator 02/08/17 04:00 28 02/08/17 04:00 90 02/08/17 03:16 78 20 28 02/08/17 01:26 84 18 28 02/08/17 00:00 28 02/08/17 00:00 82 02/07/17 23:48 98.4 84 18 110/71 100 Mechanical Ventilator 28 02/07/17 23:46 83 17 28 02/07/17 21:35 88 17 28 02/07/17 21:00 86 02/07/17 20:10 88 101/58 02/07/17 20:00 98.2 87 16 91/48 100 Mechanical Ventilator 28 02/07/17 20:00 28 02/07/17 19:21 88 17 28 02/07/17 17:08 96 24 28 02/07/17 16:00 97.0 80 16 105/60 100 Mechanical Ventilator 28 02/07/17 15:20 79 16 28 02/07/17 15:16 30 02/07/17 15:15 79 02/07/17 12:39 81 13 28 02/07/17 11:56 97.2 79 17 130/63 100 Mechanical Ventilator 02/07/17 11:44 81 02/07/17 11:44 30 02/07/17 10:40 82 14 28 Intake and Output 02/07/17 02/08/17 19:00 07:00 Intake Total 2375 ml 3282.880 ml Output Total 750 ml 1750 ml Balance 1625 ml 1532.880 ml Free Water 130 ml IV Total 1595 ml 2642.880 ml Tube Feeding 650 ml 550 ml Other 90 ml Output Urine Total 750 ml 1700 ml Stool Total 50 ml # Bowel Movements 100 Height (Feet): 5 Height (Inches): 2.00 Weight (Pounds): 138 General Appearance: WD/WN, alert Neck: supple Cardiovascular: normal rate, regular rhythm Respiratory/Chest: chest wall non-tender, lungs clear, normal breath sounds Edema: trace edema Neurologic: unresponsive, aphasia BRENDA VELASQUEZ Feb 08, 2017 10:43
--- NOTE | 2017-02-08 11:55 | Cardiology Report ---
APPROVED REPORT EXAM: Two-dimensional and M-mode echocardiogram with Doppler and color Doppler. INDICATION Pericardial effusion Technically difficult study due to poor acoustical windows. Pt on vent. Normal left ventricular chamber size, systolic function and wall motion to extent visualized. Left ventricular ejection fraction estimated to be 55-60 %. Study quality precludes accurate assessment of regional wall motion. No evidence of left ventricular hypertrophy. Anterior Echo-free space, may be due to pericardial fat or effusion. All other cardiac chamber sizes are within normal limits. Focal aortic valve sclerosis with adequate cusp excursion. Thickened mitral valve leaflets with normal excursion. Mitral annulus and aortic root calcification. Pulmonic valve not well visualized. Normal tricuspid valve structure. IVC not obtainable. A color flow and spectral Doppler study was performed and revealed: No aortic regurgitation. No mitral regurgitation. Mitral diastolic velocities suggest reduced left ventricular relaxation c/w mild LV diastolic dysfunction (Grade I) Trace tricuspid regurgitation.
[2017-02-08 12:00] VITALS: BP 98/57
--- NOTE | 2017-02-08 12:00 | Infectious Diseases Prog Note ---
"Assessment/Plan Assessment/Plan antibiotics : vancomycin iv, zosyn, flagyl A 1. proteus | providencia UTI 2. pneumonia 3. respiratory failure 4. seizures 5. HTN 6. decubitus ulcers 7. rectal VRE colonization P 1. continue zosyn 2. d/c iv vancomycin, flagyl 3. will follow up cultures Subjective ROS Limited/Unobtainable: Yes Allergies: Coded Allergies: No Known Allergies (Unverified , 02/05/17) Objective Vital Signs Last 24 Hour Vital Signs Date Time Temp Pulse Resp B/P Pulse Ox O2 Delivery O2 Flow Rate FiO2 02/08/17 10:50 90 19 28 02/08/17 08:37 92 18 28 02/08/17 08:00 98.0 20 94/56 100 Mechanical Ventilator 02/08/17 08:00 92 02/08/17 08:00 28 02/08/17 06:40 84 15 28 02/08/17 05:20 86 16 28 02/08/17 04:00 97.5 95 22 97/56 99 Mechanical Ventilator 02/08/17 04:00 28 02/08/17 04:00 90 02/08/17 03:16 78 20 28 02/08/17 01:26 84 18 28 02/08/17 00:00 28 02/08/17 00:00 82 02/07/17 23:48 98.4 84 18 110/71 100 Mechanical Ventilator 02/07/17 23:46 83 17 28 02/07/17 21:35 88 17 28 02/07/17 21:00 86 02/07/17 20:10 88 101/58 02/07/17 20:00 98.2 87 16 91/48 100 Mechanical Ventilator 02/07/17 20:00 28 02/07/17 19:21 88 17 28 02/07/17 17:08 96 24 28 02/07/17 16:00 97.0 80 16 105/60 100 Mechanical Ventilator 02/07/17 15:20 79 16 28 02/07/17 15:16 30 02/07/17 15:15 79 02/07/17 12:39 81 13 28 Height (Feet): 5 Height (Inches): 2.00 Weight (Pounds): 138 HEENT: status post trach Respiratory/Chest: lungs clear Cardiovascular: normal rate, regular rhythm, no gallop/murmur Abdomen: soft, non tender, other - GT Extremities: no edema Microbiology Date/Time Source Procedure Growth Status 02/05/17 17:33 Blood Blood Culture - Preliminary NO GROWTH AFTER 48 HOURS Resulted 02/05/17 17:23 Blood Blood Culture - Preliminary NO GROWTH AFTER 48 HOURS Resulted 02/05/17 17:45 Nasal Nares MRSA Culture - Final NO METHICILLIN RESISTANT STAPH AUREUS... Complete 02/05/17 17:33 Urine,Clean Catch Urine Culture - Preliminary Proteus Mirabilis Providencia Stuartii Resulted 02/05/17 22:00 Sacral Swab Gram Stain - Final Resulted 02/05/17 22:00 Wound Culture - Preliminary A.baumanii Complx - Mdr Resulted 02/05/17 17:45 Rectum VRE Culture - Final Enterococcus Faecium - Vre Complete FARAZ PHAN Feb 08, 2017 12:00"
[2017-02-08 16:07] VITALS: BP 97/63
--- NOTE | 2017-02-08 16:37 | Wound Nurse Progress Note ---
Wound RN Progress Note Wound Consult Went to assess the Pt. Pt at the bed side refused stated "you don't need to open up the wound, you can go and look at his chart". Explained to Pt's the need to see the wound but Pt stated "No, don't open the wound". RN who is taking care of the Pt was present in the room at the time. Charge nurse made aware. Dr De Leon is on the case and did saw this Pt today. DAHIANA BOJORQUEZ RN Feb 08, 2017 16:37
--- NOTE | 2017-02-08 17:55 | Pulmonology Progress Note ---
Assessment/Plan Assessment/Plan IMPRESSION Respiratory Failure Trach Contractures multiple decubs GT Seizure disorder moderate protein calorie malnutrition chronic encephalopathy anemia UTI PLAN care noted and discussed IV antibiotics per ID discussed with MDR and VRE respiratory care Ventilatory care noted SNF meds supportive care suction wound care noted rectal tube oxygen therapy prognosis guarded hope to dc in am d/w in detail Subjective ROS Limited/Unobtainable: Yes Allergies: Coded Allergies: No Known Allergies (Unverified , 02/05/17) Subjective care noted d/w transferred to [facility] Objective Last 24 Hour Vital Signs Date Time Temp Pulse Resp B/P Pulse Ox O2 Delivery O2 Flow Rate FiO2 02/08/17 17:10 84 16 28 02/08/17 16:07 98.9 20 97/63 100 Mechanical Ventilator 28 02/08/17 16:00 28 02/08/17 16:00 79 02/08/17 15:02 85 17 28 02/08/17 12:50 91 18 28 02/08/17 12:35 28 02/08/17 12:35 89 02/08/17 12:00 98.2 21 98/57 100 Mechanical Ventilator 28 02/08/17 10:50 90 19 28 02/08/17 08:37 92 18 28 02/08/17 08:00 98.0 20 94/56 100 Mechanical Ventilator 28 02/08/17 08:00 92 02/08/17 08:00 28 02/08/17 06:40 84 15 28 02/08/17 05:20 86 16 28 02/08/17 04:00 97.5 95 22 97/56 99 Mechanical Ventilator 28 02/08/17 04:00 28 02/08/17 04:00 90 02/08/17 03:16 78 20 28 02/08/17 01:26 84 18 28 02/08/17 00:00 28 02/08/17 00:00 82 02/07/17 23:48 98.4 84 18 110/71 100 Mechanical Ventilator 28 02/07/17 23:46 83 17 28 02/07/17 21:35 88 17 28 02/07/17 21:00 86 02/07/17 20:10 88 101/58 02/07/17 20:00 98.2 87 16 91/48 100 Mechanical Ventilator 28 02/07/17 20:00 28 02/07/17 19:21 88 17 28 Intake and Output 02/07/17 02/08/17 19:00 07:00 Intake Total 2375 ml 3332.880 ml Output Total 750 ml 1750 ml Balance 1625 ml 1582.880 ml Free Water 130 ml IV Total 1595 ml 2642.880 ml Tube Feeding 650 ml 600 ml Other 90 ml Output Urine Total 750 ml 1700 ml Stool Total 50 ml # Bowel Movements 100 Objective WDWN chronically ill NAD coarse breath sounds bilaterally without rhonchi or wheeze [id number] without MRG NABS nontender no HSM; GT no CCE contractures trach nonfocal Microbiology Date/Time Source Procedure Growth Status 02/05/17 22:00 Sacral Swab Gram Stain - Final Resulted 02/05/17 22:00 Wound Culture - Preliminary A.baumanii Complx - Mdr Resulted Current Medications Medications (Trade) Dose Ordered Sig/Mehdi Route PRN Reason Start Time Stop Time Status Last Admin Dose Admin Acetaminophen (Tylenol) 650 mg EVERY 6 HOURS PRN GT mild pain 02/06/17 18:00 03/08/17 17:59 Acetaminophen/ Hydrocodone Bitart ([place] 10/325) 1 ea EVERY 12 HOURS PRN GT Pain Scale (6-10) 02/06/17 21:00 02/13/17 20:59 Ascorbic Acid (Vitamin C) 500 mg DAILY GT 02/07/17 09:00 03/09/17 08:59 02/08/17 09:10 Heparin Sodium (Porcine) (Heparin 5000 units/ml) 5,000 units EVERY 12 HOURS SUBQ 02/06/17 21:00 03/08/17 20:59 02/08/17 09:12 Lansoprazole (Prevacid) 30 mg Q12HR GT 02/06/17 21:00 03/08/17 20:59 02/08/17 09:10 Levetiracetam (Keppra) 500 mg Q12HR GT 02/06/17 21:00 03/08/17 20:59 02/08/17 09:11 Lorazepam (Ativan) 0.5 mg Q6H PRN GT For Anxiety 02/06/17 16:00 02/13/17 15:59 Magnesium Oxide (Mag-Ox 400mg) 400 mg DAILY GT 02/07/17 09:00 03/09/17 08:59 02/08/17 09:11 Midodrine (Pro-Amatine) 10 mg EVERY 8 HOURS ORAL 02/07/17 22:00 03/09/17 21:59 02/08/17 14:26 Multivitamins (Multivitamins W/ Minerals 15ml Liquid) 5 ml DAILY GT 02/07/17 09:00 03/09/17 08:59 02/08/17 09:15 Ondansetron HCl (Zofran ODT) 4 mg Q6H PRN ORAL Nausea & Vomiting 02/06/17 16:00 03/08/17 15:59 Piperacillin Sod/ Tazobactam Sod/ Dextrose (Zosyn/D5W) 110 ml @ 27.5 mls/hr Q8H IVPB 02/06/17 16:00 02/13/17 15:59 02/08/17 16:18 Sodium Chloride 1,000 ml @ 100 mls/hr Q10H IV 02/06/17 13:45 03/08/17 13:44 02/08/17 06:02 Sodium Chloride (Sodium Chloride 1000ml bag) 1,000 ml @ 999 mls/hr Q1H1M PRN IV For hypotension 02/07/17 21:30 03/09/17 21:29 02/07/17 21:40 Zinc Sulfate 220 mg 220 mg DAILY GT 02/07/17 09:00 03/09/17 08:59 02/08/17 09:10 SANDRINE WEI Feb 08, 2017 17:55
[2017-02-08 19:40] VITALS: BP 92/53
[2017-02-09] VITALS (7 sets, daily range): BP systolic 90–105; BP diastolic 52–66
[2017-02-09] MEDS: Piperacillin/Tazobactam 4.5 GM in D5W 110 ML IVPB SCH ×4 (00:14→23:44)
[2017-02-09 05:31] LABS: BASOPHILS % (AUTO) 0.7 % (0.0-2.0); EOSINOPHILS % (AUTO) 11.8 % (0.0-3.0); MEAN CORPUSCULAR HGB CONC 32.8 G/DL (32.0-36.0); MEAN CORPUSCULAR VOLUME 82 FL (80-99); MEAN PLATELET VOLUME 5.7 FL (6.5-10.1); MONOCYTES % (AUTO) 6.3 % (1.0-10.0); NEUTROPHILS % (AUTO) 63.2 % (45.0-75.0); PLATELET COUNT 263 K/UL (150-450); RED BLOOD COUNT 3.46 M/UL (4.70-6.10); RED CELL DISTRIBUTION WIDTH 16.3 % (11.6-14.8); WHITE BLOOD COUNT 9.1 K/UL (4.8-10.8)
[2017-02-09] MEDS: Midodrine 10mg tab ORAL SCH ×3 (06:14→21:09)
--- NOTE | 2017-02-09 08:38 | Pulmonology Progress Note ---
Assessment/Plan Assessment/Plan IMPRESSION Respiratory Failure Trach Contractures multiple decubs GT Seizure disorder moderate protein calorie malnutrition chronic encephalopathy anemia UTI PLAN care noted and discussed IV antibiotics per ID noted discussed with MDR and VRE- colonized respiratory care Ventilatory care noted SNF meds supportive care suction as needed wound care noted rectal tube oxygen therapy prognosis guarded hope to dc in am d/w in detail; agreeable to dc today impression, plan, and exam edited and reviewed in detail care discussed with RN Subjective ROS Limited/Unobtainable: Yes Allergies: Coded Allergies: No Known Allergies (Unverified , 02/05/17) Subjective care noted d/w transferred to [facility] and stable Objective Last 24 Hour Vital Signs Date Time Temp Pulse Resp B/P Pulse Ox O2 Delivery O2 Flow Rate FiO2 02/09/17 06:34 86 16 28 02/09/17 05:14 84 16 28 02/09/17 04:00 97.7 85 17 96/57 98 Mechanical Ventilator 28 02/09/17 04:00 83 02/09/17 04:00 28 02/09/17 03:28 86 16 28 02/09/17 01:26 78 14 28 02/09/17 00:00 87 02/09/17 00:00 99.1 87 17 93/56 100 Mechanical Ventilator 28 02/09/17 00:00 28 02/08/17 23:20 90 16 28 02/08/17 21:30 89 14 28 02/08/17 20:00 95 02/08/17 20:00 28 02/08/17 19:40 98.6 97 23 92/53 100 Mechanical Ventilator 28 02/08/17 19:30 96 20 28 02/08/17 17:10 84 16 28 02/08/17 16:07 98.9 20 97/63 100 Mechanical Ventilator 28 02/08/17 16:00 28 02/08/17 16:00 79 02/08/17 15:02 85 17 28 02/08/17 12:50 91 18 28 02/08/17 12:35 28 02/08/17 12:35 89 02/08/17 12:00 98.2 21 98/57 100 Mechanical Ventilator 28 02/08/17 10:50 90 19 28 Intake and Output 02/08/17 02/09/17 19:00 07:00 Intake Total 1900 ml 2139.41 ml Output Total 1700 ml 1800 ml Balance 200 ml 339.41 ml Free Water 180 ml 450 ml IV Total 1120 ml 1079.41 ml Tube Feeding 600 ml 550 ml Other 60 ml Output Urine Total 1600 ml 1750 ml Stool Total 100 ml 50 ml Objective WDWN chronically ill NAD coarse breath sounds bilaterally without rhonchi or wheeze [id number] without MRG NABS nontender no HSM; GT no CCE contractures trach nonfocal Laboratory Tests 02/09/17 04:20: White Blood Count 9.1, Red Blood Count 3.46L, Hemoglobin 9.3L, Hematocrit 28.4L , Mean Corpuscular Volume 82, Mean Corpuscular Hemoglobin 27.0, Mean Corpuscular Hemoglobin Concent 32.8, Red Cell Distribution Width 16.3H, Platelet Count 263, Mean Platelet Volume 5.7L, Neutrophils (%) (Auto) 63.2, Lymphocytes (%) (Auto) 18.0L, Monocytes (%) (Auto) 6.3, Eosinophils (%) (Auto) 11.8H, Basophils (%) (Auto) 0.7 Current Medications Medications (Trade) Dose Ordered Sig/Mehdi Route PRN Reason Start Time Stop Time Status Last Admin Dose Admin Acetaminophen (Tylenol) 650 mg EVERY 6 HOURS PRN GT mild pain 02/06/17 18:00 03/08/17 17:59 Acetaminophen/ Hydrocodone Bitart ([place] 10/325) 1 ea EVERY 12 HOURS PRN GT Pain Scale (6-10) 02/06/17 21:00 02/13/17 20:59 Ascorbic Acid (Vitamin C) 500 mg DAILY GT 02/07/17 09:00 03/09/17 08:59 02/08/17 09:10 Heparin Sodium (Porcine) (Heparin 5000 units/ml) 5,000 units EVERY 12 HOURS SUBQ 02/06/17 21:00 03/08/17 20:59 02/08/17 20:33 Lansoprazole (Prevacid) 30 mg Q12HR GT 02/06/17 21:00 03/08/17 20:59 02/08/17 20:31 Levetiracetam (Keppra) 500 mg Q12HR GT 02/06/17 21:00 03/08/17 20:59 02/08/17 20:31 Lorazepam (Ativan) 0.5 mg Q6H PRN GT For Anxiety 02/06/17 16:00 02/13/17 15:59 Magnesium Oxide (Mag-Ox 400mg) 400 mg DAILY GT 02/07/17 09:00 03/09/17 08:59 02/08/17 09:11 Midodrine (Pro-Amatine) 10 mg EVERY 8 HOURS ORAL 02/07/17 22:00 03/09/17 21:59 02/09/17 06:14 Multivitamins (Multivitamins W/ Minerals 15ml Liquid) 5 ml DAILY GT 02/07/17 09:00 03/09/17 08:59 02/08/17 09:15 Ondansetron HCl (Zofran ODT) 4 mg Q6H PRN ORAL Nausea & Vomiting 02/06/17 16:00 03/08/17 15:59 Piperacillin Sod/ Tazobactam Sod/ Dextrose (Zosyn/D5W) 110 ml @ 27.5 mls/hr Q8H IVPB 02/06/17 16:00 02/13/17 15:59 02/09/17 00:14 Sodium Chloride 1,000 ml @ 100 mls/hr Q10H IV 02/06/17 13:45 03/08/17 13:44 02/09/17 06:16 Sodium Chloride (Sodium Chloride 1000ml bag) 1,000 ml @ 999 mls/hr Q1H1M PRN IV For hypotension 02/07/17 21:30 03/09/17 21:29 02/07/17 21:40 Zinc Sulfate 220 mg 220 mg DAILY GT 02/07/17 09:00 03/09/17 08:59 02/08/17 09:10 SANDRINE WEI Feb 09, 2017 08:38
--- NOTE | 2017-02-09 08:44 | Diagnostic Imaging Report ---
Indication: Dyspnea Comparison: 02/06/17 A single view chest radiograph was obtained. Findings: Tracheostomy again noted. Mild interstitial edema may be present. Please correlate clinically. Exam limited by rotation and low lung volumes. The heart is borderline enlarged. Impression: Possible mild interstitial edema. Please correlate clinically. Limited examination
[2017-02-09] MEDS: Magnesium Oxide 400mg tab GT SCH (09:42)
[2017-02-09] MEDS: Ascorbic Acid 500mg tab GT SCH (09:42)
[2017-02-09] MEDS: Zinc Sulfate 220mg cap GT SCH (09:42)
--- NOTE | 2017-02-09 09:42 | Infectious Diseases Prog Note ---
Assessment/Plan Assessment/Plan A: Sepsis Complicated UTI ? pneumonia Chronic respiratory failure Multiple pressure ulcers Anemia P: continue Zosyn Stool for C.difficile Subjective ROS Limited/Unobtainable: Yes Allergies: Coded Allergies: No Known Allergies (Unverified , 02/05/17) Objective Vital Signs Last 24 Hour Vital Signs Date Time Temp Pulse Resp B/P Pulse Ox O2 Delivery O2 Flow Rate FiO2 02/09/17 08:45 86 16 28 02/09/17 08:43 100 02/09/17 06:34 86 16 28 02/09/17 05:14 84 16 28 02/09/17 04:00 97.7 85 17 96/57 98 Mechanical Ventilator 28 02/09/17 04:00 83 02/09/17 04:00 28 02/09/17 03:28 86 16 28 02/09/17 01:26 78 14 28 02/09/17 00:00 87 02/09/17 00:00 99.1 87 17 93/56 100 Mechanical Ventilator 02/09/17 00:00 28 02/08/17 23:20 90 16 28 02/08/17 21:30 89 14 28 02/08/17 20:00 95 02/08/17 20:00 28 02/08/17 19:40 98.6 97 23 92/53 100 Mechanical Ventilator 28 02/08/17 19:30 96 20 28 02/08/17 17:10 84 16 28 02/08/17 16:07 98.9 20 97/63 100 Mechanical Ventilator 28 02/08/17 16:00 28 02/08/17 16:00 79 02/08/17 15:02 85 17 28 02/08/17 12:50 91 18 28 02/08/17 12:35 28 02/08/17 12:35 89 02/08/17 12:00 98.2 21 98/57 100 Mechanical Ventilator 28 02/08/17 10:50 90 19 28 Height (Feet): 5 Height (Inches): 2.00 Weight (Pounds): 135 General Appearance: no acute distress HEENT: status post trach Respiratory/Chest: lungs clear, other - on ventilator Cardiovascular: normal rate Abdomen: soft, non tender, other - GT , rectal tube Extremities: no edema, other - contracted Neurologic/Psychiatric: unresponsiveness Laboratory Tests Test 02/09/17 04:20 White Blood Count 9.1 K/UL (4.8-10.8) Red Blood Count 3.46 M/UL (4.70-6.10) L Hemoglobin 9.3 G/DL (14.2-18.0) L Hematocrit 28.4 % (42.0-52.0) L Mean Corpuscular Volume 82 FL (80-99) Mean Corpuscular Hemoglobin 27.0 PG (27.0-31.0) Mean Corpuscular Hemoglobin Concent 32.8 G/DL (32.0-36.0) Red Cell Distribution Width 16.3 % (11.6-14.8) H Platelet Count 263 K/UL (150-450) Mean Platelet Volume 5.7 FL (6.5-10.1) L Neutrophils (%) (Auto) 63.2 % (45.0-75.0) Lymphocytes (%) (Auto) 18.0 % (20.0-45.0) L Monocytes (%) (Auto) 6.3 % (1.0-10.0) Eosinophils (%) (Auto) 11.8 % (0.0-3.0) H Basophils (%) (Auto) 0.7 % (0.0-2.0) Current Medications Medications (Trade) Dose Ordered Sig/Mehdi Route PRN Reason Start Time Stop Time Status Last Admin Dose Admin Acetaminophen (Tylenol) 650 mg EVERY 6 HOURS PRN GT mild pain 02/06/17 18:00 03/08/17 17:59 Acetaminophen/ Hydrocodone Bitart ([place] 10/325) 1 ea EVERY 12 HOURS PRN GT Pain Scale (6-10) 02/06/17 21:00 02/13/17 20:59 Ascorbic Acid (Vitamin C) 500 mg DAILY GT 02/07/17 09:00 03/09/17 08:59 02/08/17 09:10 Heparin Sodium (Porcine) (Heparin 5000 units/ml) 5,000 units EVERY 12 HOURS SUBQ 02/06/17 21:00 03/08/17 20:59 02/08/17 20:33 Lansoprazole (Prevacid) 30 mg Q12HR GT 02/06/17 21:00 03/08/17 20:59 02/08/17 20:31 Levetiracetam (Keppra) 500 mg Q12HR GT 02/06/17 21:00 03/08/17 20:59 02/08/17 20:31 Lorazepam (Ativan) 0.5 mg Q6H PRN GT For Anxiety 02/06/17 16:00 02/13/17 15:59 Magnesium Oxide (Mag-Ox 400mg) 400 mg DAILY GT 02/07/17 09:00 03/09/17 08:59 02/08/17 09:11 Midodrine (Pro-Amatine) 10 mg EVERY 8 HOURS ORAL 02/07/17 22:00 03/09/17 21:59 02/09/17 06:14 Multivitamins (Multivitamins W/ Minerals 15ml Liquid) 5 ml DAILY GT 02/07/17 09:00 03/09/17 08:59 02/08/17 09:15 Ondansetron HCl (Zofran ODT) 4 mg Q6H PRN ORAL Nausea & Vomiting 02/06/17 16:00 03/08/17 15:59 Piperacillin Sod/ Tazobactam Sod/ Dextrose (Zosyn/D5W) 110 ml @ 27.5 mls/hr Q8H IVPB 02/06/17 16:00 02/13/17 15:59 02/09/17 00:14 Sodium Chloride 1,000 ml @ 100 mls/hr Q10H IV 02/06/17 13:45 03/08/17 13:44 02/09/17 06:16 Sodium Chloride (Sodium Chloride 1000ml bag) 1,000 ml @ 999 mls/hr Q1H1M PRN IV For hypotension 02/07/17 21:30 03/09/17 21:29 02/07/17 21:40 Zinc Sulfate 220 mg 220 mg DAILY GT 02/07/17 09:00 03/09/17 08:59 02/08/17 09:10 RONI RODRIGUEZ Feb 09, 2017 09:42
[2017-02-09] MEDS: Multivitamins W/Minerals 15 ML UDC GT SCH (09:43)
[2017-02-09] MEDS: Heparin 5000 units/ml inj SUBQ SCH ×2 (09:49→21:14)
--- NOTE | 2017-02-09 10:04 | General Progress Note ---
Assessment/Plan Problem List: (1) Toxic metabolic encephalopathy ICD Codes: G92 - Toxic encephalopathy SNOMED: 457713053 (2) Chronic respiratory failure ICD Codes: J96.10 - Chronic respiratory failure, unspecified whether with hypoxia or hypercapnia SNOMED: 75239122, 07466387 (3) Tracheostomy dependence ICD Codes: Z93.0 - Tracheostomy status SNOMED: 212281268, 247392855 (4) Infected decubitus ulcer ICD Codes: L89.90 - Pressure ulcer of unspecified site, unspecified stage; L08.9 - Local infection of the skin and subcutaneous tissue, unspecified SNOMED: 039422660, 69211059 (5) Sepsis associated hypotension ICD Codes: A41.9 - Sepsis, unspecified organism SNOMED: 66640430 Status: stable Assessment/Plan iv abx per id follow up cultures vent resp rx gt feeds wound care poor prognosis agree with dc Subjective Allergies: Coded Allergies: No Known Allergies (Unverified , 02/05/17) Subjective no events. no fevers. ID and pulm noted. on feeds and the vent.contracted. no bleeding. no fevers. tolerating feeds. Objective Last 24 Hour Vital Signs Date Time Temp Pulse Resp B/P Pulse Ox O2 Delivery O2 Flow Rate FiO2 02/09/17 08:45 86 16 02/09/17 08:43 100 02/09/17 08:00 28 02/09/17 06:34 86 16 02/09/17 05:14 84 16 02/09/17 04:00 97.7 85 17 96/57 98 Mechanical Ventilator 02/09/17 04:00 83 02/09/17 04:00 02/09/17 03:28 86 16 02/09/17 01:26 78 14 02/09/17 00:00 87 02/09/17 00:00 99.1 87 17 93/56 100 Mechanical Ventilator 02/09/17 00:00 28 02/08/17 23:20 90 16 28 02/08/17 21:30 89 14 28 02/08/17 20:00 95 02/08/17 20:00 28 02/08/17 19:40 98.6 97 23 92/53 100 Mechanical Ventilator 02/08/17 19:30 96 20 02/08/17 17:10 84 16 28 02/08/17 16:07 98.9 20 97/63 100 Mechanical Ventilator 28 02/08/17 16:00 28 02/08/17 16:00 79 02/08/17 15:02 85 17 28 02/08/17 12:50 91 18 28 02/08/17 12:35 28 02/08/17 12:35 89 02/08/17 12:00 98.2 21 98/57 100 Mechanical Ventilator 28 02/08/17 10:50 90 19 28 Intake and Output 02/08/17 02/09/17 19:00 07:00 Intake Total 1900 ml 2139.41 ml Output Total 1700 ml 1800 ml Balance 200 ml 339.41 ml Free Water 180 ml 450 ml IV Total 1120 ml 1079.41 ml Tube Feeding 600 ml 550 ml Other 60 ml Output Urine Total 1600 ml 1750 ml Stool Total 100 ml 50 ml Laboratory Tests 02/09/17 04:20: White Blood Count 9.1, Red Blood Count 3.46L, Hemoglobin 9.3L, Hematocrit 28.4L , Mean Corpuscular Volume 82, Mean Corpuscular Hemoglobin 27.0, Mean Corpuscular Hemoglobin Concent 32.8, Red Cell Distribution Width 16.3H, Platelet Count 263, Mean Platelet Volume 5.7L, Neutrophils (%) (Auto) 63.2, Lymphocytes (%) (Auto) 18.0L, Monocytes (%) (Auto) 6.3, Eosinophils (%) (Auto) 11.8H, Basophils (%) (Auto) 0.7 Height (Feet): 5 Height (Inches): 2.00 Weight (Pounds): 135 General Appearance: WD/WN, lethargic, confused, cachetic Neck: supple Cardiovascular: regular rhythm Respiratory/Chest: chest wall non-tender, lungs clear, normal breath sounds Abdomen: normal bowel sounds, non tender, soft, no organomegaly Edema: no edema noted Arm (L), no edema noted Arm (R), no edema noted Leg (L), no edema noted Leg (R), no edema noted Pedal (L), no edema noted Pedal (R), no edema noted Generalized Neurologic: unresponsive, aphasia BRENDA VELASQUEZ Feb 09, 2017 10:03
[2017-02-10 04:00] VITALS: BP 104/64
[2017-02-10] MEDS: Midodrine 10mg tab ORAL SCH ×3 (05:22→21:54)
--- NOTE | 2017-02-10 05:34 | General Progress Note ---
Assessment/Plan Problem List: (1) Toxic metabolic encephalopathy ICD Codes: G92 - Toxic encephalopathy SNOMED: 392843632 (2) Chronic respiratory failure ICD Codes: J96.10 - Chronic respiratory failure, unspecified whether with hypoxia or hypercapnia SNOMED: 02646032, 03341716 (3) Tracheostomy dependence ICD Codes: Z93.0 - Tracheostomy status SNOMED: 240356028, 807177126 (4) Infected decubitus ulcer ICD Codes: L89.90 - Pressure ulcer of unspecified site, unspecified stage; L08.9 - Local infection of the skin and subcutaneous tissue, unspecified SNOMED: 599589038, 19983931 (5) Sepsis associated hypotension ICD Codes: A41.9 - Sepsis, unspecified organism SNOMED: 65405221 Status: stable Assessment/Plan iv abx per id follow up cultures vent resp rx gt feeds wound care poor prognosis dc planning in process Subjective ROS Limited/Unobtainable: Yes Constitutional: Reports: malaise, weakness HEENT: Reports: no symptoms Cardiovascular: Reports: no symptoms Respiratory: Reports: sputum Gastrointestinal/Abdominal: Reports: no symptoms Genitourinary: Reports: no symptoms Neurologic/Psychiatric: Reports: pre-existing deficit, seizure Endocrine: Reports: no symptoms Hematologic/Lymphatic: Reports: anemia Allergies: Coded Allergies: No Known Allergies (Unverified , 02/05/17) All Systems: reviewed and negative except above Subjective no events. on the vent. stable. no fevers. snf unable to take pt back due to state survery. on feeds Objective Last 24 Hour Vital Signs Date Time Temp Pulse Resp B/P (MAP) Pulse Ox O2 Delivery O2 Flow Rate FiO2 02/10/17 05:16 93 18 28 02/10/17 04:00 28 02/10/17 04:00 91 02/10/17 02:37 98 14 28 02/10/17 01:30 92 12 28 02/10/17 00:00 92 02/10/17 00:00 28 02/09/17 23:55 98.3 88 16 98/58 100 Mechanical Ventilator 02/09/17 23:35 83 12 28 02/09/17 20:00 28 02/09/17 20:00 88 02/09/17 19:48 98.3 85 18 105/59 100 Mechanical Ventilator 02/09/17 19:22 92 17 28 02/09/17 17:22 93 16 28 02/09/17 16:10 79 02/09/17 16:00 28 02/09/17 16:00 98.1 80 22 102/66 99 Mechanical Ventilator 02/09/17 15:24 93 18 02/09/17 12:51 88 15 02/09/17 12:00 97.5 87 22 90/52 99 Mechanical Ventilator 02/09/17 12:00 02/09/17 11:57 84 02/09/17 10:44 74 12 02/09/17 08:45 86 16 02/09/17 08:43 100 02/09/17 08:00 28 02/09/17 08:00 76 02/09/17 08:00 97.5 81 14 101/55 100 Mechanical Ventilator 02/09/17 06:34 86 16 28 Height (Feet): 5 Height (Inches): 2.00 Weight (Pounds): 135 Objective General Appearance: WD/WN, lethargic, confused, cachetic Neck: supple Cardiovascular: regular rhythm Respiratory/Chest: chest wall non-tender, lungs clear, normal breath sounds Abdomen: normal bowel sounds, non tender, soft, no organomegaly Edema: no edema noted Arm (L), no edema noted Arm (R), no edema noted Leg (L), no edema noted Leg (R), no edema noted Pedal (L), no edema noted Pedal (R), no edema noted Generalized Neurologic: unresponsive, aphasia BRENDA VELASQUEZ Feb 10, 2017 05:34
[2017-02-10 08:00] VITALS: BP 98/58
[2017-02-10] MEDS: Ascorbic Acid 500mg tab GT SCH (08:18)
[2017-02-10] MEDS: Piperacillin/Tazobactam 4.5 GM in D5W 110 ML IVPB SCH ×2 (08:18→15:43)
[2017-02-10] MEDS: Multivitamins W/Minerals 15 ML UDC GT SCH (08:18)
[2017-02-10] MEDS: Zinc Sulfate 220mg cap GT SCH (08:18)
[2017-02-10] MEDS: Magnesium Oxide 400mg tab GT SCH (08:18)
[2017-02-10] MEDS: Heparin 5000 units/ml inj SUBQ SCH ×2 (08:24→20:53)
[2017-02-10] MEDS ORDERED: Tubing Blood Filter IV ONE (08:52)
[2017-02-10] MEDS ORDERED: Tubing IV Secondary IV ONE (08:52)
[2017-02-10] MEDS ORDERED: NS 275ml ONE (08:52)
--- NOTE | 2017-02-10 09:29 | Pulmonology Progress Note ---
Assessment/Plan Assessment/Plan IMPRESSION Respiratory Failure Trach [employer] multiple decubs GT Seizure disorder moderate protein calorie malnutrition chronic encephalopathy anemia UTI PLAN care noted and discussed IV antibiotics per ID noted MDR and VRE- colonized respiratory care Ventilatory care noted SNF meds supportive care suction as needed wound care noted rectal tube oxygen therapy prognosis guarded hope to dc to snf but requires isolation aware impression, plan, and exam edited and reviewed in detail care discussed with RN Subjective Allergies: Coded Allergies: No Known Allergies (Unverified , 02/05/17) Subjective care noted d/w transferred to [facility] and stable awaiting return to SNF isolation needed Objective Last 24 Hour Vital Signs Date Time Temp Pulse Resp B/P (MAP) Pulse Ox O2 Delivery O2 Flow Rate FiO2 02/10/17 08:31 86 15 28 02/10/17 06:43 83 13 28 02/10/17 05:16 93 18 28 02/10/17 04:00 28 02/10/17 04:00 98.1 94 18 104/64 99 Mechanical Ventilator 02/10/17 04:00 91 02/10/17 02:37 98 14 28 02/10/17 01:30 92 12 28 02/10/17 00:00 92 02/10/17 00:00 28 02/09/17 23:55 98.3 88 16 98/58 100 Mechanical Ventilator 02/09/17 23:35 83 12 28 02/09/17 20:00 28 02/09/17 20:00 88 02/09/17 19:48 98.3 85 18 105/59 100 Mechanical Ventilator 02/09/17 19:22 92 17 28 02/09/17 17:22 93 16 28 02/09/17 16:10 79 02/09/17 16:00 28 02/09/17 16:00 98.1 80 22 102/66 99 Mechanical Ventilator 02/09/17 15:24 93 18 28 02/09/17 12:51 88 15 28 02/09/17 12:00 97.5 87 22 90/52 99 Mechanical Ventilator 02/09/17 12:00 28 02/09/17 11:57 84 02/09/17 10:44 74 12 28 Objective WDWN chronically ill NAD coarse breath sounds bilaterally without rhonchi or wheeze; same [id number] without MRG NABS nontender no HSM; GT no CCE contractures poor LOC trach nonfocal Current Medications Medications (Trade) Dose Ordered Sig/Mehdi Route PRN Reason Start Time Stop Time Status Last Admin Dose Admin Acetaminophen (Tylenol) 650 mg EVERY 6 HOURS PRN GT mild pain 02/06/17 18:00 03/08/17 17:59 Acetaminophen/ Hydrocodone Bitart ([place] 10/325) 1 ea EVERY 12 HOURS PRN GT Pain Scale (6-10) 02/06/17 21:00 02/13/17 20:59 Ascorbic Acid (Vitamin C) 500 mg DAILY GT 02/07/17 09:00 03/09/17 08:59 02/10/17 08:18 Heparin Sodium (Porcine) (Heparin 5000 units/ml) 5,000 units EVERY 12 HOURS SUBQ 02/06/17 21:00 03/08/17 20:59 02/10/17 08:24 Lansoprazole (Prevacid) 30 mg Q12HR GT 02/06/17 21:00 03/08/17 20:59 02/10/17 08:18 Levetiracetam (Keppra) 500 mg Q12HR GT 02/06/17 21:00 03/08/17 20:59 02/10/17 08:18 Lorazepam (Ativan) 0.5 mg Q6H PRN GT For Anxiety 02/06/17 16:00 02/13/17 15:59 Magnesium Oxide (Mag-Ox 400mg) 400 mg DAILY GT 02/07/17 09:00 03/09/17 08:59 02/10/17 08:18 Midodrine (Pro-Amatine) 10 mg EVERY 8 HOURS ORAL 02/07/17 22:00 03/09/17 21:59 02/10/17 05:22 Multivitamins (Multivitamins W/ Minerals 15ml Liquid) 5 ml DAILY GT 02/07/17 09:00 03/09/17 08:59 02/10/17 08:18 Ondansetron HCl (Zofran ODT) 4 mg Q6H PRN ORAL Nausea & Vomiting 02/06/17 16:00 03/08/17 15:59 Piperacillin Sod/ Tazobactam Sod 4.5 gm/Dextrose 110 ml @ 27.5 mls/hr Q8H IVPB 02/06/17 16:00 02/13/17 15:59 02/10/17 08:18 Sodium Chloride 1,000 ml @ 100 mls/hr Q10H IV 02/06/17 13:45 03/08/17 13:44 02/10/17 02:53 Sodium Chloride 1,000 ml @ 999 mls/hr Q1H1M PRN IV For hypotension 02/07/17 21:30 03/09/17 21:29 02/07/17 21:40 Zinc Sulfate (Zinc Sulfate) 220 mg DAILY GT 02/07/17 09:00 03/09/17 08:59 02/10/17 08:18 SANDRINE WEI Feb 10, 2017 09:29
[2017-02-10 12:00] VITALS: BP 93/55
--- NOTE | 2017-02-10 12:13 | Infectious Diseases Prog Note ---
"Assessment/Plan Assessment/Plan antibiotics : zosyn A 1. proteus | providencia UTI 2. pneumonia 3. respiratory failure 4. seizures 5. HTN 6. decubitus ulcers 7. rectal VRE colonization P 1. continue zosyn 2 more days 2. will follow up cultures Subjective ROS Limited/Unobtainable: Yes Allergies: Coded Allergies: No Known Allergies (Unverified , 02/05/17) Objective Vital Signs Last 24 Hour Vital Signs Date Time Temp Pulse Resp B/P (MAP) Pulse Ox O2 Delivery O2 Flow Rate FiO2 02/10/17 12:00 28 02/10/17 10:30 89 18 28 02/10/17 08:31 86 15 28 02/10/17 08:00 28 02/10/17 08:00 98.4 84 16 98/58 99 Mechanical Ventilator 02/10/17 08:00 87 02/10/17 06:43 83 13 28 02/10/17 05:16 93 18 28 02/10/17 04:00 28 02/10/17 04:00 98.1 94 18 104/64 99 Mechanical Ventilator 02/10/17 04:00 91 02/10/17 02:37 98 14 28 02/10/17 01:30 92 12 28 02/10/17 00:00 92 02/10/17 00:00 28 02/09/17 23:55 98.3 88 16 98/58 100 Mechanical Ventilator 02/09/17 23:35 83 12 28 02/09/17 20:00 28 02/09/17 20:00 88 02/09/17 19:48 98.3 85 18 105/59 100 Mechanical Ventilator 02/09/17 19:22 92 17 28 02/09/17 17:22 93 16 28 02/09/17 16:10 79 02/09/17 16:00 28 02/09/17 16:00 98.1 80 22 102/66 99 Mechanical Ventilator 02/09/17 15:24 93 18 28 02/09/17 12:51 88 15 28 Height (Feet): 5 Height (Inches): 2.00 Weight (Pounds): 141 HEENT: status post trach Respiratory/Chest: lungs clear Cardiovascular: normal rate, regular rhythm, no gallop/murmur Abdomen: soft, non tender, other - GT Extremities: no edema FARAZ PHAN Feb 10, 2017 12:13"
[2017-02-10 16:00] VITALS: BP 105/64
[2017-02-10 20:02] VITALS: BP 91/54
[2017-02-10 23:51] VITALS: BP 96/59
[2017-02-11 04:00] VITALS: BP_SYST 140; BP_SYST 95; BP_DIAS 58; BP_DIAS 90
[2017-02-11] MEDS: Midodrine 10mg tab ORAL SCH ×3 (05:48→21:25)
[2017-02-11 08:00] VITALS: BP 91/54
--- NOTE | 2017-02-11 08:23 | General Progress Note ---
Assessment/Plan Problem List: (1) Toxic metabolic encephalopathy ICD Codes: G92 - Toxic encephalopathy SNOMED: 047090997 (2) Chronic respiratory failure ICD Codes: J96.10 - Chronic respiratory failure, unspecified whether with hypoxia or hypercapnia SNOMED: 12165222, 83123090 (3) Tracheostomy dependence ICD Codes: Z93.0 - Tracheostomy status SNOMED: 589663152, 031797881 (4) Infected decubitus ulcer ICD Codes: L89.90 - Pressure ulcer of unspecified site, unspecified stage; L08.9 - Local infection of the skin and subcutaneous tissue, unspecified SNOMED: 052610439, 94740880 (5) Sepsis associated hypotension ICD Codes: A41.9 - Sepsis, unspecified organism SNOMED: 47351359 Status: stable Assessment/Plan iv abx per vent resp rx gt feeds wound care poor prognosis dc planning in process cont current rx Subjective ROS Limited/Unobtainable: Yes Constitutional: Reports: malaise, weakness HEENT: Reports: no symptoms Cardiovascular: Reports: no symptoms Respiratory: Reports: shortness of breath, sputum Gastrointestinal/Abdominal: Reports: difficulty swallowing Genitourinary: Reports: no symptoms Neurologic/Psychiatric: Reports: pre-existing deficit Endocrine: Reports: no symptoms Hematologic/Lymphatic: Reports: anemia Allergies: Coded Allergies: No Known Allergies (Unverified , 02/05/17) All Systems: reviewed and negative except above Subjective no events. on the vent. stable. no fevers. snf unable to take pt back due to state survey. on feeds Objective Last 24 Hour Vital Signs Date Time Temp Pulse Resp B/P (MAP) Pulse Ox O2 Delivery O2 Flow Rate FiO2 02/11/17 06:50 73 16 28 02/11/17 05:22 86 16 28 02/11/17 04:00 98.1 74 18 95/58 98 Mechanical Ventilator 28 02/11/17 04:00 28 02/11/17 04:00 81 02/11/17 03:19 81 15 28 02/11/17 01:01 80 13 28 02/11/17 00:00 73 02/11/17 00:00 28 02/10/17 23:51 97.9 78 13 96/59 97 02/10/17 23:20 78 14 28 02/10/17 21:25 90 18 28 02/10/17 20:02 99.0 92 18 91/54 98 Mechanical Ventilator 02/10/17 20:00 28 02/10/17 20:00 92 02/10/17 19:18 90 18 28 02/10/17 16:38 85 16 28 02/10/17 16:00 87 02/10/17 16:00 98.6 88 17 105/64 98 Mechanical Ventilator 02/10/17 16:00 28 02/10/17 14:33 87 14 28 02/10/17 12:31 85 14 02/10/17 12:00 98.4 70 20 93/55 98 Mechanical Ventilator 02/10/17 12:00 28 02/10/17 12:00 89 02/10/17 10:30 89 18 02/10/17 08:31 86 15 28 Height (Feet): 5 Height (Inches): 2.00 Weight (Pounds): 133 Objective General Appearance: WD/WN, lethargic, confused, cachetic Neck: supple Cardiovascular: regular rhythm Respiratory/Chest: chest wall non-tender, lungs clear, normal breath sounds Abdomen: normal bowel sounds, non tender, soft, no organomegaly Edema: no edema noted Arm (L), no edema noted Arm (R), no edema noted Leg (L), no edema noted Leg (R), no edema noted Pedal (L), no edema noted Pedal (R), no edema noted Generalized Neurologic: unresponsive, aphasia BRENDA VELASQUEZ Feb 11, 2017 08:23
[2017-02-11] MEDS: Zinc Sulfate 220mg cap GT SCH (08:27)
[2017-02-11] MEDS: Ascorbic Acid 500mg tab GT SCH (08:27)
[2017-02-11] MEDS: Multivitamins W/Minerals 15 ML UDC GT SCH (08:27)
[2017-02-11] MEDS: Piperacillin/Tazobactam 4.5 GM in D5W 110 ML IVPB SCH ×5 (08:27→23:31)
[2017-02-11] MEDS: Magnesium Oxide 400mg tab GT SCH (08:27)
[2017-02-11] MEDS: Heparin 5000 units/ml inj SUBQ SCH ×2 (08:29→21:10)
[2017-02-11 12:00] VITALS: BP 97/57
--- NOTE | 2017-02-11 13:23 | Infectious Diseases Prog Note ---
Assessment/Plan Assessment/Plan A: Sepsis Complicated UTI ? pneumonia Chronic respiratory failure Multiple pressure ulcers Anemia MRSA colonization P: continue Zosyn X 1 day Stool for C.difficile is negative Subjective ROS Limited/Unobtainable: Yes Allergies: Coded Allergies: No Known Allergies (Unverified , 02/05/17) Objective Vital Signs Last 24 Hour Vital Signs Date Time Temp Pulse Resp B/P (MAP) Pulse Ox O2 Delivery O2 Flow Rate FiO2 02/11/17 12:48 80 14 28 02/11/17 12:00 80 02/11/17 12:00 28 02/11/17 12:00 97.8 84 14 97/57 97 Mechanical Ventilator 02/11/17 11:17 80 14 28 02/11/17 09:19 73 16 28 02/11/17 08:00 97.7 76 14 91/54 100 Mechanical Ventilator 02/11/17 08:00 28 02/11/17 08:00 78 02/11/17 06:50 73 16 28 02/11/17 05:22 86 16 28 02/11/17 04:00 98.1 74 18 95/58 98 Mechanical Ventilator 02/11/17 04:00 28 02/11/17 04:00 81 02/11/17 03:19 81 15 28 02/11/17 01:01 80 13 28 02/11/17 00:00 73 02/11/17 00:00 28 02/10/17 23:51 97.9 78 13 96/59 97 02/10/17 23:20 78 14 28 02/10/17 21:25 90 18 28 02/10/17 20:02 99.0 92 18 91/54 98 Mechanical Ventilator 02/10/17 20:00 28 02/10/17 20:00 92 02/10/17 19:18 90 18 28 02/10/17 16:38 85 16 28 02/10/17 16:00 87 02/10/17 16:00 98.6 88 17 105/64 98 Mechanical Ventilator 02/10/17 16:00 28 02/10/17 14:33 87 14 28 Height (Feet): 5 Height (Inches): 2.00 Weight (Pounds): 133 General Appearance: no acute distress HEENT: status post trach Respiratory/Chest: lungs clear, other - on ventilator Cardiovascular: normal rate Abdomen: soft, non tender, other - GT & rectal tube Extremities: no edema Skin: ulcers Neurologic/Psychiatric: unresponsiveness Musculoskeletal: atrophy Microbiology Date/Time Source Procedure Growth Status 02/10/17 11:00 Stool Clostridium difficile Toxin Assay - Final Complete Current Medications Medications (Trade) Dose Ordered Sig/Mehdi Route PRN Reason Start Time Stop Time Status Last Admin Dose Admin Acetaminophen (Tylenol) 650 mg EVERY 6 HOURS PRN GT mild pain 02/06/17 18:00 03/08/17 17:59 Acetaminophen/ Hydrocodone Bitart ([place] 10/325) 1 ea EVERY 12 HOURS PRN GT Pain Scale (6-10) 02/06/17 21:00 02/13/17 20:59 Ascorbic Acid (Vitamin C) 500 mg DAILY GT 02/07/17 09:00 03/09/17 08:59 02/11/17 08:27 Heparin Sodium (Porcine) (Heparin 5000 units/ml) 5,000 units EVERY 12 HOURS SUBQ 02/06/17 21:00 03/08/17 20:59 02/11/17 08:29 Lansoprazole (Prevacid) 30 mg Q12HR GT 02/06/17 21:00 03/08/17 20:59 02/11/17 08:27 Levetiracetam (Keppra) 500 mg Q12HR GT 02/06/17 21:00 03/08/17 20:59 02/11/17 08:27 Lorazepam (Ativan) 0.5 mg Q6H PRN GT For Anxiety 02/06/17 16:00 02/13/17 15:59 Magnesium Oxide (Mag-Ox 400mg) 400 mg DAILY GT 02/07/17 09:00 03/09/17 08:59 02/11/17 08:27 Midodrine (Pro-Amatine) 10 mg EVERY 8 HOURS ORAL 02/07/17 22:00 03/09/17 21:59 02/11/17 05:48 Multivitamins (Multivitamins W/ Minerals 15ml Liquid) 5 ml DAILY GT 02/07/17 09:00 03/09/17 08:59 02/11/17 08:27 Ondansetron HCl (Zofran ODT) 4 mg Q6H PRN ORAL Nausea & Vomiting 02/06/17 16:00 03/08/17 15:59 Piperacillin Sod/ Tazobactam Sod 4.5 gm/Dextrose 110 ml @ 27.5 mls/hr Q8H IVPB 02/06/17 16:00 02/13/17 15:59 02/11/17 08:27 Sodium Chloride 1,000 ml @ 100 mls/hr Q10H IV 02/06/17 13:45 03/08/17 13:44 02/11/17 12:47 Sodium Chloride 1,000 ml @ 999 mls/hr Q1H1M PRN IV For hypotension 02/07/17 21:30 03/09/17 21:29 02/07/17 21:40 Zinc Sulfate (Zinc Sulfate) 220 mg DAILY GT 02/07/17 09:00 03/09/17 08:59 02/11/17 08:27 RONI RODRIGUEZ Feb 11, 2017 13:23
--- NOTE | 2017-02-11 14:58 | Wound Nurse Progress Note ---
Wound RN Progress Note Wound Consult previously refused wound assessment , agreed for wounds to be addressed, dressings changed and assessed, was thankful. CURTIS JOAQUIN Feb 11, 2017 14:58
--- NOTE | 2017-02-11 15:48 | Wound Care Consultation ---
Wound Assessment Wound Assessment #1: Wound Number: 1 Wound Present on Admission: Yes New Wound: No Status Change of Wound: No Wound Location Body Site Modif: left - inner Wound Location Body Site: other - pubic region [place] Wound Type: other - open wound etiology unknown, patient noted with lower extremity contracture at groin site. Murphy Test: Does not Murphy Wound Thickness: Full Thickness Wound Length: 4.0 Wound Width: 4.0 Wound Depth: 0.3 Percent of Wound [place]/Red: 100 Wound Drainage Description: Serosanguineous Wound Drainage Amount: Copious Wound Drainage Odor: None/Absent Tissue Surrounding Wound: Macerated Wound General Appearance: Reddened, Draining Wound Assessment #2: Wound Number: 2 Wound Present on Admission: Yes New Wound: No Status Change of Wound: No Wound Location Body Site Modif: left, lower Wound Location Body Site: other - rib area Wound Type: other - open wound etiology unknown. Murphy Test: Does not Murphy Wound Thickness: Full Thickness Wound Length: 4.0 Wound Width: 4.0 Wound Depth: 0.2 Percent of Wound [place]/Red: 80 Percent of Wound Bed Yellow/Wh: 20 Other Colors Identified: noted full thickness scar tissue Wound Drainage Description: Serosanguineous Wound Drainage Amount: Scant Wound Drainage Odor: None/Absent Tissue Surrounding Wound: Erythemic Wound General Appearance: Reddened Wound Assessment #3: Wound Number: 3 Wound Present on Admission: Yes New Wound: No Status Change of Wound: No Wound Location Body Site Modif: left, lateral Wound Location Body Site: abdomen Wound Type: blister - denuded Murphy Test: Does not Murphy Wound Thickness: Partial Thickness Wound Length: 1.0 Wound Width: 1.0 Wound Depth: less than 0.1 Percent of Wound [place]/Red: 100 Wound Drainage Description: Serosanguineous Wound Drainage Amount: Scant Wound Drainage Odor: None/Absent Tissue Surrounding Wound: Erythemic Wound General Appearance: Reddened Wound Assessment #4: Wound Number: 4 Wound Present on Admission: Yes New Wound: No Status Change of Wound: No Wound Location Body Site Modif: right, mid, lateral Wound Location Body Site: knee Wound Type: pressure ulcer Murphy Test: Does not Murphy Pressure Ulcer Stage: IV/unstageable Wound Thickness: Full Thickness Wound Length: 3.0 Wound Width: 3.0 Wound Depth: utd Percent of Wound [place]/Red: 70 Percent of Wound Bed Yellow/Wh: 30 Wound Drainage Description: Serosanguineous Wound Drainage Amount: Moderate Wound Drainage Odor: None/Absent Tissue Surrounding Wound: Macerated Wound General Appearance: Reddened, Draining, Necrotic Wound Assessment #5: Wound Number: 5 Wound Present on Admission: Yes New Wound: No Status Change of Wound: No Wound Location Body Site Modif: left, lateral Wound Location Body Site: malleolus/ankle Wound Type: pressure ulcer Murphy Test: Does not Murphy Pressure Ulcer Stage: IV/unstageable - IV. Wound Thickness: Full Thickness Wound Length: 2.0 Wound Width: 2.0 Wound Depth: 0.3 Percent of Wound [place]/Red: 100 Other Colors Identified: full thickness scar tissue to surrounding skin. Wound Drainage Description: Serosanguineous Wound Drainage Amount: Moderate Wound Drainage Odor: None/Absent Tissue Surrounding Wound: Macerated Wound General Appearance: Reddened, Draining Wound Assessment #6: Wound Number: 6 Wound Present on Admission: Yes New Wound: No Status Change of Wound: No Wound Location Body Site Modif: right, lower, lateral Wound Location Body Site: leg Wound Type: pressure ulcer Murphy Test: Does not Murphy Pressure Ulcer Stage: IV/unstageable - IV. Wound Thickness: Full Thickness Wound Length: 10.0 Wound Width: 2.0 Wound Depth: 0.3 Percent of Wound [place]/Red: 90 Percent of Wound Bed Yellow/Wh: 10 Wound Drainage Description: Serosanguineous Wound Drainage Amount: Moderate Wound Drainage Odor: None/Absent Tissue Surrounding Wound: Macerated Wound General Appearance: Reddened, Draining, Necrotic - scattered 10% yellow/white Wound Assessment #7: Wound Number: 7 Wound Present on Admission: Yes New Wound: No Status Change of Wound: No Wound Location Body Site Modif: right, lateral Wound Location Body Site: malleolus/ankle Wound Type: pressure ulcer Murphy Test: Does not Murphy Pressure Ulcer Stage: IV/unstageable - unstageble. Wound Thickness: Full Thickness Wound Length: 3.0 Wound Width: 3.0 Wound Depth: utd Percent of Wound [place]/Red: 10 Percent of Wound Bed Yellow/Wh: 50 - yellow dry scab Percent of Wound Black/Brown: 40 - dry scab Wound Drainage Description: Serosanguineous Wound Drainage Amount: None Wound Drainage Odor: None/Absent Tissue Surrounding Wound: Erythemic Wound General Appearance: Reddened, Blackened - noted brown/yellow scab formation. Wound Assessment #8: Wound Number: 8 Wound Present on Admission: Yes New Wound: No Status Change of Wound: No Wound Location Body Site Modif: left Wound Location Body Site: trochanter Wound Type: pressure ulcer Murphy Test: Does not Murphy Pressure Ulcer Stage: IV/unstageable Wound Thickness: Full Thickness Wound Length: 22.0 Wound Width: 14.0 Wound Depth: 0.5 Percent of Wound [place]/Red: 80 Percent of Wound Bed Yellow/Wh: 20 Other Colors Identified: noted hypergranulation tissue to wound bed and epibole to rim of wound. Wound Drainage Description: Serosanguineous Wound Drainage Amount: Copious Wound Drainage Odor: None/Absent Tissue Surrounding Wound: Indurated - epibole to rim Wound General Appearance: Reddened, Draining, Muscle Visible Wound Assessment #9: Wound Number: 9 Wound Present on Admission: Yes New Wound: No Status Change of Wound: No Wound Location Body Site Modif: right Wound Location Body Site: trochanter Wound Type: pressure ulcer Murphy Test: Does not Murphy Pressure Ulcer Stage: IV/unstageable - IV Wound Thickness: Full Thickness Wound Length: 13.0 Wound Width: 8.0 Wound Depth: 0.5 Percent of Wound [place]/Red: 90 Percent of Wound Bed Yellow/Wh: 10 - Scattered Wound Drainage Description: Serosanguineous Wound Drainage Amount: Copious Wound Drainage Odor: None/Absent Tissue Surrounding Wound: Macerated - noted epibole to rim of wound. Wound Undermining at 12:00: 2.0 Wound Undermining at 9:00: 2.0 Tunneling From: 9 Tunneling To: 12 Wound General Appearance: Reddened, Draining, Necrotic - 10% scattered yellow/white, Muscle Visible Wound Assessment #10: Wound Number: 10 Wound Present on Admission: Yes New Wound: No Status Change of Wound: No Wound Location Body Site: other - sacrococcygeal extending full thickness and masceration to left buttocks. Wound Type: pressure ulcer Murphy Test: Does not Murphy Pressure Ulcer Stage: IV/unstageable - IV Wound Thickness: Full Thickness Wound Length: 13.0 Wound Width: 11.0 Wound Depth: 0.5 Percent of Wound [place]/Red: 90 Percent of Wound Bed Yellow/Wh: 10 - scattered yellow/white. Wound Drainage Description: Serosanguineous Wound Drainage Amount: Copious Wound Drainage Odor: None/Absent Tissue Surrounding Wound: Macerated - epibole to rim wound edges. Wound Undermining at 3:00: 1.5 Wound Undermining at 6:00: 1.5 Tunneling From: 3 Tunneling To: 6 Wound General Appearance: Reddened, Draining, Muscle Visible Wound Assessment #11: Wound Number: 11 Wound Present on Admission: Yes New Wound: No Status Change of Wound: No Wound Location Body Site Modif: posterior, other Wound Location Body Site: occipital region Wound Type: pressure ulcer Murphy Test: Does not Murphy Pressure Ulcer Stage: IV/unstageable - admitted DTI revealing self to stage IV. Wound Thickness: Full Thickness Wound Length: 2.0 Wound Width: 2.0 Wound Depth: 0.3 Percent of Wound [place]/Red: 50 - wound bed red/pink Percent of Wound Purple/Maroon: 50 - surrounding tissue is maroon color. Wound Drainage Description: Serosanguineous Wound Drainage Amount: Moderate Wound Drainage Odor: None/Absent Tissue Surrounding Wound: Erythemic Wound General Appearance: Reddened - maroon, Draining Wound Assessment #12: Wound Number: 12 Wound Present on Admission: Yes New Wound: No Status Change of Wound: No Wound Location Body Site Modif: left Wound Location Body Site: ischial tuberosity Wound Type: pressure ulcer Murphy Test: Does not Murphy Pressure Ulcer Stage: IV/unstageable - unstageable Wound Thickness: Full Thickness Wound Length: 10.0 Wound Width: 8.0 Wound Depth: utd Percent of Wound [place]/Red: 30 Percent of Wound Bed Yellow/Wh: 60 Percent of Wound Black/Brown: 10 Wound Drainage Description: Serosanguineous Wound Drainage Amount: Copious Wound Drainage Odor: Mild Odor Tissue Surrounding Wound: Macerated Wound General Appearance: Reddened, Draining, Necrotic, Muscle Visible Wound Comment #1 left inner groin open full thickness wound -etiology unknown. #2 Right lateral mid knee pressure ulcer stage IV/unstageable. #3 left lower rib full thickness open wound etiology unknown. #4 left lateral abdomen denuded blister. #5 left lateral malleolus pressure ulcer stage IV. #6 right lateral lower leg pressure ulcer stage IV. #7 right malleolus unstageable/IV pressure ulcer. #8 left trochanter pressure ulcer stage IV. #9 right trochanter pressure ulcer stage IV. #10 sacrococcygeal extending to left buttocks stage IV pressure ulcer. #11 posterior occipital head admitted dti revealing self stage IV. #12 left ischial tuberosity pressure ulcer stage IV/unstageable. #13 left elbow full thickness scar tissue. #14 right posterior scapula full thickness scar tissue. #15 left posterior full thickness scar tissue. #16 right elbow fullthickness scar tissue. #17 right lateral and posterior torso scattered full thickness scar tissues. #18 scattered full thickness scar tissues to both lower legs and over bony prominenece. Recommendation. - Local protocol wound care orders. - Apply low air loss P200 mattress for wound and skin management. - Turn and reposition. -Offload affected areas. - apply heel protectors. -offload heels and feet and lateral knees, occipital. groin area - Optimize nutrition. -Keep clean and dry. -Avoid shear and friction. -Assess and follow up with MD for any changes of condition to skin or further recommendations. CURTIS JOAQUIN Feb 11, 2017 15:48
[2017-02-11 16:00] VITALS: BP 106/65
--- NOTE | 2017-02-11 16:22 | Pulmonology Progress Note ---
Assessment/Plan Assessment/Plan IMPRESSION Respiratory Failure Trach Contractures multiple decubs GT Seizure disorder moderate protein calorie malnutrition chronic encephalopathy anemia UTI PLAN care noted and discussed IV antibiotics per ID noted MDR and VRE- colonized respiratory care as is Ventilatory care noted SNF meds supportive care suction as needed wound care noted rectal tube oxygen therapy prognosis guarded awaiting snf transfer impression, plan, and exam edited and reviewed in detail care discussed with RN Subjective ROS Limited/Unobtainable: Yes Allergies: Coded Allergies: No Known Allergies (Unverified , 02/05/17) Subjective care noted d/w awaiting return to SNF isolation needed Objective Last 24 Hour Vital Signs Date Time Temp Pulse Resp B/P (MAP) Pulse Ox O2 Delivery O2 Flow Rate FiO2 02/11/17 16:00 28 02/11/17 16:00 98.1 78 16 106/65 97 Mechanical Ventilator 02/11/17 15:36 72 16 28 02/11/17 12:48 80 14 28 02/11/17 12:00 80 02/11/17 12:00 28 02/11/17 12:00 97.8 84 14 97/57 97 Mechanical Ventilator 02/11/17 11:17 80 14 02/11/17 09:19 73 16 28 02/11/17 08:00 97.7 76 14 91/54 100 Mechanical Ventilator 02/11/17 08:00 28 02/11/17 08:00 78 02/11/17 06:50 73 16 28 02/11/17 05:22 86 16 28 02/11/17 04:00 98.1 74 18 95/58 98 Mechanical Ventilator 02/11/17 04:00 28 02/11/17 04:00 81 02/11/17 03:19 81 15 28 02/11/17 01:01 80 13 28 02/11/17 00:00 73 02/11/17 00:00 28 02/10/17 23:51 97.9 78 13 96/59 97 02/10/17 23:20 78 14 28 02/10/17 21:25 90 18 28 02/10/17 20:02 99.0 92 18 91/54 98 Mechanical Ventilator 28 02/10/17 20:00 28 02/10/17 20:00 92 02/10/17 19:18 90 18 28 02/10/17 16:38 85 16 28 Intake and Output 02/11/17 02/12/17 19:00 07:00 Intake Total 1370.0 ml Balance 1370.0 ml IV Total 910.0 ml Tube Feeding 400 ml Other 60 ml Objective WDWN chronically ill NAD coarse breath sounds bilaterally without rhonchi or wheeze; same [id number] without MRG NABS nontender no HSM; GT no CCE contractures poor LOC trach nonfocal Microbiology Date/Time Source Procedure Growth Status 02/10/17 11:00 Stool Clostridium difficile Toxin Assay - Final Complete Current Medications Medications (Trade) Dose Ordered Sig/Mehdi Route PRN Reason Start Time Stop Time Status Last Admin Dose Admin Acetaminophen (Tylenol) 650 mg EVERY 6 HOURS PRN GT mild pain 02/06/17 18:00 03/08/17 17:59 Acetaminophen/ Hydrocodone Bitart (Jackson 10/325) 1 ea EVERY 12 HOURS PRN GT Pain Scale (6-10) 02/06/17 21:00 02/13/17 20:59 Ascorbic Acid (Vitamin C) 500 mg DAILY GT 02/07/17 09:00 03/09/17 08:59 02/11/17 08:27 Heparin Sodium (Porcine) (Heparin 5000 units/ml) 5,000 units EVERY 12 HOURS SUBQ 02/06/17 21:00 03/08/17 20:59 02/11/17 08:29 Lansoprazole (Prevacid) 30 mg Q12HR GT 02/06/17 21:00 03/08/17 20:59 02/11/17 08:27 Levetiracetam (Keppra) 500 mg Q12HR GT 02/06/17 21:00 03/08/17 20:59 02/11/17 08:27 Lorazepam (Ativan) 0.5 mg Q6H PRN GT For Anxiety 02/06/17 16:00 02/13/17 15:59 Magnesium Oxide (Mag-Ox 400mg) 400 mg DAILY GT 02/07/17 09:00 03/09/17 08:59 02/11/17 08:27 Midodrine (Pro-Amatine) 10 mg EVERY 8 HOURS ORAL 02/07/17 22:00 03/09/17 21:59 02/11/17 13:40 Multivitamins (Multivitamins W/ Minerals 15ml Liquid) 5 ml DAILY GT 02/07/17 09:00 03/09/17 08:59 02/11/17 08:27 Ondansetron HCl (Zofran ODT) 4 mg Q6H PRN ORAL Nausea & Vomiting 02/06/17 16:00 03/08/17 15:59 Piperacillin Sod/ Tazobactam Sod 4.5 gm/Dextrose 110 ml @ 27.5 mls/hr Q8H IVPB 02/06/17 16:00 02/13/17 15:59 02/11/17 15:27 Sodium Chloride 1,000 ml @ 100 mls/hr Q10H IV 02/06/17 13:45 03/08/17 13:44 02/11/17 12:47 Sodium Chloride 1,000 ml @ 999 mls/hr Q1H1M PRN IV For hypotension 02/07/17 21:30 03/09/17 21:29 02/07/17 21:40 Zinc Sulfate (Zinc Sulfate) 220 mg DAILY GT 02/07/17 09:00 03/09/17 08:59 02/11/17 08:27 SANDRINE WEI Feb 11, 2017 16:22
[2017-02-11 20:31] VITALS: BP 101/57
--- NOTE | 2017-02-11 21:24 | Cardiology Report ---
APPROVED REPORT EKG Measurement Heart [id number] [place] [id number] Normal sinus rhythm Normal ECG
[2017-02-12] VITALS (10 sets, daily range): BP systolic 83–123; BP diastolic 46–70
[2017-02-12 05:38] LABS: BASOPHILS % (AUTO) 0.7 % (0.0-2.0); EOSINOPHILS % (AUTO) 11.9 % (0.0-3.0); MEAN CORPUSCULAR HEMOGLOBIN 26.5 PG (27.0-31.0); MEAN CORPUSCULAR VOLUME 83 FL (80-99); MEAN PLATELET VOLUME 5.6 FL (6.5-10.1); MONOCYTES % (AUTO) 7.1 % (1.0-10.0); NEUTROPHILS % (AUTO) 59.4 % (45.0-75.0); PLATELET COUNT 279 K/UL (150-450); RED BLOOD COUNT 3.42 M/UL (4.70-6.10); RED CELL DISTRIBUTION WIDTH 16.7 % (11.6-14.8); WHITE BLOOD COUNT 8.4 K/UL (4.8-10.8)
[2017-02-12 05:49] LABS: ALANINE AMINOTRANSFERASE 16 U/L (3-41); ALBUMIN/GLOBULIN RATIO 0.4 (1.0-2.7); ANION GAP 8 (5-15); ASPARTATE AMINO TRANSFERASE 19 U/L (5-40); CALCIUM 8.6 mg/dL (8.6-10.2); CARBON DIOXIDE 28 mEQ/L (20-30); CHLORIDE 102 mEQ/L (98-107); CREATININE 0.3 mg/dL (0.7-1.2); GLOMERULAR FILTRATION RATE > 60 mL/min (>60); HEMOLYSIS 3; POTASSIUM 3.8 mEQ/L (3.4-4.9); SODIUM 138 mEQ/L (135-145); TOTAL PROTEIN 7.1 g/dL (6.6-8.7)
[2017-02-12] MEDS: Midodrine 10mg tab ORAL SCH ×2 (06:19→13:38)
--- NOTE | 2017-02-12 07:44 | Consultation ---
History of Present Illness General Date patient seen: Feb 08, 2017 Time patient seen: 12:30 Chief Complaint: General Complaint Referring physician: Davin Reason for Consultation: Multiple pressure ulcers Present Illness HPI Asked to evaluate this 66 yom with multiple large pressure ulcers of the hips and buttocks. Patient was admitted to [facility] from a SNF with sepsis. He is bedridden with multiple LE contractures. He is on a ventilator with a trach and has a feeding tube. It is unclear how long he has had the ulcers or what the treatment was at the SNF. He is being followed by ID during this admission. Allergies: Coded Allergies: No Known Allergies (Unverified , 02/05/17) Medication History Scheduled Levetiracetam* (Levetiracetam*), 500 MG GT TWICE A DAY, (Reported) Midodrine* (Proamatine*), 10 MG GT THREE TIMES A DAY, (Reported) Multivitamin With Minerals (Multivitamins With Minerals*), 1 TAB GT DAILY, ( Reported) Zinc Gluconate-Zinc Picolinate (Zinc), 220 MG GT DAILY, (Reported) Scheduled PRN Acetaminophen* (Acetaminophen 325MG Tablet*), 650 MG GT Q6H PRN for Mild Pain ( Pain Scale 1-3), (Reported) Hydrocodone Bit/Acetaminophen 10-325* (Cucumber 10-325*), 1 TAB GT EVERY 12 HOURS PRN for For Pain, (Reported) Patient History Limited by: medical condition History Provided By: Medical Record Healthcare decision maker Jerald Patel Resuscitation status Full Code Advanced Directive on File No Physical Exam General Appearance: no apparent distress Lines, tubes and drains: trach, gtube, caldwell cath Abdomen: soft Skin Exam: other - Large stage 4 pressure ulcer of b/l trochanters and sacrum with clean granulation tissue present. Severe contracture of the left hip leading to protrusion of femur at center of the left hip ulcer. Bone is not visble or palpable. Ischial ulcer with fibrotic debris at the base and also stage 4. No erythema or warmth in the periskin of any of the ulcers. Musculoskeletal: atrophy, other - Significant for flexion contractures in both hips and knees. Last 24 Hour Vital Signs Date Time Temp Pulse Resp B/P (MAP) Pulse Ox O2 Delivery O2 Flow Rate FiO2 02/12/17 06:43 75 18 28 02/12/17 05:02 88 16 28 02/12/17 04:00 28 02/12/17 04:00 97.8 87 15 101/56 99 Mechanical Ventilator 02/12/17 04:00 97.8 74 15 101/56 100 Mechanical Ventilator 02/12/17 03:45 89 02/12/17 02:59 90 16 28 02/12/17 01:30 86 16 28 02/12/17 00:00 98.7 74 13 123/70 100 Mechanical Ventilator 02/11/17 23:58 78 02/11/17 22:55 88 15 28 02/11/17 21:01 82 17 28 02/11/17 20:31 99.0 83 15 101/57 100 Mechanical Ventilator 02/11/17 20:00 28 02/11/17 19:59 84 02/11/17 19:30 83 18 28 02/11/17 16:50 77 16 28 02/11/17 16:00 28 02/11/17 16:00 98.1 78 16 106/65 97 Mechanical Ventilator 02/11/17 16:00 74 02/11/17 15:36 72 16 02/11/17 12:48 80 14 02/11/17 12:00 80 02/11/17 12:00 28 02/11/17 12:00 97.8 84 14 97/57 97 Mechanical Ventilator 02/11/17 11:17 80 14 02/11/17 09:19 73 16 28 02/11/17 08:00 97.7 76 14 91/54 100 Mechanical Ventilator 02/11/17 08:00 02/11/17 08:00 78 Laboratory Tests Test 02/12/17 04:50 White Blood Count 8.4 K/UL (4.8-10.8) Red Blood Count 3.42 M/UL (4.70-6.10) L Hemoglobin 9.1 G/DL (14.2-18.0) L Hematocrit 28.4 % (42.0-52.0) L Mean Corpuscular Volume 83 FL (80-99) Mean Corpuscular Hemoglobin 26.5 PG (27.0-31.0) L Mean Corpuscular Hemoglobin Concent 32.0 G/DL (32.0-36.0) Red Cell Distribution Width 16.7 % (11.6-14.8) H Platelet Count 279 K/UL (150-450) Mean Platelet Volume 5.6 FL (6.5-10.1) L Neutrophils (%) (Auto) 59.4 % (45.0-75.0) Lymphocytes (%) (Auto) 21.0 % (20.0-45.0) Monocytes (%) (Auto) 7.1 % (1.0-10.0) Eosinophils (%) (Auto) 11.9 % (0.0-3.0) H Basophils (%) (Auto) 0.7 % (0.0-2.0) Sodium Level 138 mEQ/L (135-145) Potassium Level 3.8 mEQ/L (3.4-4.9) Chloride Level 102 mEQ/L (98-107) Carbon Dioxide Level 28 mEQ/L (20-30) Anion Gap 8 (5-15) Blood Urea Nitrogen 10 mg/dL (7-23) Creatinine 0.3 mg/dL (0.7-1.2) L Estimat Glomerular Filtration Rate > 60 mL/min (>60) Glucose Level 104 mg/dL (74-106) Calcium Level 8.6 mg/dL (8.6-10.2) Total Bilirubin < 0.2 mg/dL (0.0-1.2) Aspartate Amino Transf (AST/SGOT) 19 U/L (5-40) Alanine Aminotransferase (ALT/SGPT) 16 U/L (3-41) Alkaline Phosphatase 85 U/L (40-129) Total Protein 7.1 g/dL (6.6-8.7) Albumin 2.2 g/dL (3.5-5.2) L Globulin 4.9 g/dL Albumin/Globulin Ratio 0.4 (1.0-2.7) L Height (Feet): 5 Height (Inches): 2.00 Weight (Pounds): 132 Medications Current Medications Medications (Trade) Dose Ordered Sig/Mehdi Route PRN Reason Start Time Stop Time Status Last Admin Dose Admin Acetaminophen (Tylenol) 650 mg EVERY 6 HOURS PRN GT mild pain 02/06/17 18:00 03/08/17 17:59 Acetaminophen/ Hydrocodone Bitart (Cucumber 10/325) 1 ea EVERY 12 HOURS PRN GT Pain Scale (6-10) 02/06/17 21:00 02/13/17 20:59 Ascorbic Acid (Vitamin C) 500 mg DAILY GT 02/07/17 09:00 03/09/17 08:59 02/11/17 08:27 Heparin Sodium (Porcine) (Heparin 5000 units/ml) 5,000 units EVERY 12 HOURS SUBQ 02/06/17 21:00 03/08/17 20:59 02/11/17 21:10 Lansoprazole (Prevacid) 30 mg Q12HR GT 02/06/17 21:00 03/08/17 20:59 02/11/17 21:08 Levetiracetam (Keppra) 500 mg Q12HR GT 02/06/17 21:00 03/08/17 20:59 02/11/17 21:08 Lorazepam (Ativan) 0.5 mg Q6H PRN GT For Anxiety 02/06/17 16:00 02/13/17 15:59 Magnesium Oxide (Mag-Ox 400mg) 400 mg DAILY GT 02/07/17 09:00 03/09/17 08:59 02/11/17 08:27 Midodrine (Pro-Amatine) 10 mg EVERY 8 HOURS ORAL 02/07/17 22:00 03/09/17 21:59 02/12/17 06:19 Multivitamins (Multivitamins W/ Minerals 15ml Liquid) 5 ml DAILY GT 02/07/17 09:00 03/09/17 08:59 02/11/17 08:27 Ondansetron HCl (Zofran ODT) 4 mg Q6H PRN ORAL Nausea & Vomiting 02/06/17 16:00 03/08/17 15:59 Piperacillin Sod/ Tazobactam Sod 4.5 gm/Dextrose 110 ml @ 27.5 mls/hr Q8H IVPB 02/06/17 16:00 02/13/17 15:59 02/11/17 23:31 Sodium Chloride 1,000 ml @ 100 mls/hr Q10H IV 02/06/17 13:45 03/08/17 13:44 02/11/17 23:27 Sodium Chloride 1,000 ml @ 999 mls/hr Q1H1M PRN IV For hypotension 02/07/17 21:30 03/09/17 21:29 02/07/17 21:40 Zinc Sulfate (Zinc Sulfate) 220 mg DAILY GT 02/07/17 09:00 03/09/17 08:59 02/11/17 08:27 Assessment/Plan Assessment/Plan Patient with multiple large stage 4 pressure ulcers. He has a very poor prognosis for healing these ulcers given the size, depth, location of the ulcers , not to mention the low albumin and his flexion contractures. Need to be aggressive with offloading understanding that he will always be resting on one of the ulcers no matter how well he is offloaded. Also need to optimize nutrition. Will continue the alginate to all but the ischial ulcer which will benefit more from santyl to enzymatically debride the fibrotic debris at the base. He is a poor surgical candidate. Discussed the case with ID. Thank you for allowing me to participate in his care. POLY HARDY Feb 12, 2017 07:44
--- NOTE | 2017-02-12 07:49 | General Progress Note ---
Assessment/Plan Problem List: (1) Toxic metabolic encephalopathy ICD Codes: G92 - Toxic encephalopathy SNOMED: 033819210 (2) Chronic respiratory failure ICD Codes: J96.10 - Chronic respiratory failure, unspecified whether with hypoxia or hypercapnia SNOMED: 06331241, 03511921 (3) Tracheostomy dependence ICD Codes: Z93.0 - Tracheostomy status SNOMED: 983689980, 257712959 (4) Infected decubitus ulcer ICD Codes: L89.90 - Pressure ulcer of unspecified site, unspecified stage; L08.9 - Local infection of the skin and subcutaneous tissue, unspecified SNOMED: 652592754, 47771783 (5) Sepsis associated hypotension ICD Codes: A41.9 - Sepsis, unspecified organism SNOMED: 45651424 Status: stable Assessment/Plan iv abx per vent resp rx gt feeds/monitor residuals wound care. wound care consult noted. poor prognosis dc planning in process cont current rx Subjective ROS Limited/Unobtainable: No Constitutional: Reports: malaise, weakness HEENT: Reports: no symptoms Cardiovascular: Reports: no symptoms Respiratory: Reports: no symptoms, shortness of breath, sputum Gastrointestinal/Abdominal: Reports: difficulty swallowing Genitourinary: Reports: no symptoms Neurologic/Psychiatric: Reports: pre-existing deficit Endocrine: Reports: no symptoms Hematologic/Lymphatic: Reports: no symptoms Allergies: Coded Allergies: No Known Allergies (Unverified , 02/05/17) All Systems: reviewed and negative except above Subjective no events. on the vent. stable. no fevers. wound eval noted. on feeds and abx Objective Last 24 Hour Vital Signs Date Time Temp Pulse Resp B/P (MAP) Pulse Ox O2 Delivery O2 Flow Rate FiO2 02/12/17 06:43 75 18 28 02/12/17 05:02 88 16 28 02/12/17 04:00 28 02/12/17 04:00 97.8 87 15 101/56 99 Mechanical Ventilator 02/12/17 04:00 97.8 74 15 101/56 100 Mechanical Ventilator 02/12/17 03:45 89 02/12/17 02:59 90 16 28 02/12/17 01:30 86 16 02/12/17 00:00 98.7 74 13 123/70 100 Mechanical Ventilator 02/11/17 23:58 78 02/11/17 22:55 88 15 02/11/17 21:01 82 17 28 02/11/17 20:31 99.0 83 15 101/57 100 Mechanical Ventilator 02/11/17 20:00 28 02/11/17 19:59 84 02/11/17 19:30 83 18 02/11/17 16:50 77 16 28 02/11/17 16:00 28 02/11/17 16:00 98.1 78 16 106/65 97 Mechanical Ventilator 02/11/17 16:00 74 02/11/17 15:36 72 16 02/11/17 12:48 80 14 02/11/17 12:00 80 02/11/17 12:00 28 02/11/17 12:00 97.8 84 14 97/57 97 Mechanical Ventilator 02/11/17 11:17 80 14 02/11/17 09:19 73 16 02/11/17 08:00 97.7 76 14 91/54 100 Mechanical Ventilator 02/11/17 08:00 02/11/17 08:00 78 Laboratory Tests 02/12/17 04:50: White Blood Count 8.4, Red Blood Count 3.42L, Hemoglobin 9.1L, Hematocrit 28.4L , Mean Corpuscular Volume 83, Mean Corpuscular Hemoglobin 26.5L, Mean Corpuscular Hemoglobin Concent 32.0, Red Cell Distribution Width 16.7H, Platelet Count 279, Mean Platelet Volume 5.6L, Neutrophils (%) (Auto) 59.4, Lymphocytes (%) (Auto) 21.0, Monocytes (%) (Auto) 7.1, Eosinophils (%) (Auto) 11.9H, Basophils (%) (Auto) 0.7, Sodium Level 138, Potassium Level 3.8, Chloride Level 102, Carbon Dioxide Level 28, Anion Gap 8, Blood Urea Nitrogen 10 , Creatinine 0.3L, Estimat Glomerular Filtration Rate > 60, Glucose Level 104, Calcium Level 8.6, Total Bilirubin < 0.2, Aspartate Amino Transf (AST/SGOT) 19, Alanine Aminotransferase (ALT/SGPT) 16, Alkaline Phosphatase 85, Total Protein 7.1, Albumin 2.2L, Globulin 4.9, Albumin/Globulin Ratio 0.4L Height (Feet): 5 Height (Inches): 2.00 Weight (Pounds): 132 Objective General Appearance: WD/WN, lethargic, confused, cachetic Neck: supple Cardiovascular: regular rhythm Respiratory/Chest: chest wall non-tender, lungs clear, normal breath sounds Abdomen: normal bowel sounds, non tender, soft, no organomegaly Edema: no edema noted Arm (L), no edema noted Arm (R), no edema noted Leg (L), no edema noted Leg (R), no edema noted Pedal (L), no edema noted Pedal (R), no edema noted Generalized Neurologic: unresponsive, aphasia BRENDA VELASQUEZ Feb 12, 2017 07:49
[2017-02-12] MEDS: Zinc Sulfate 220mg cap GT SCH (08:14)
[2017-02-12] MEDS: Ascorbic Acid 500mg tab GT SCH (08:14)
[2017-02-12] MEDS: Piperacillin/Tazobactam 4.5 GM in D5W 110 ML IVPB SCH (08:14)
[2017-02-12] MEDS: Magnesium Oxide 400mg tab GT SCH (08:14)
[2017-02-12] MEDS: Multivitamins W/Minerals 15 ML UDC GT SCH (08:15)
[2017-02-12] MEDS: Heparin 5000 units/ml inj SUBQ SCH ×2 (08:16→21:47)
--- NOTE | 2017-02-12 11:25 | Infectious Diseases Prog Note ---
"Assessment/Plan Assessment/Plan antibiotics : zosyn A 1. proteus | providencia UTI s/p rx 2. pneumonia s/p rx 3. respiratory failure 4. seizures 5. HTN 6. decubitus ulcers 7. rectal VRE colonization P 1. d/c zosyn 2. observe off antibiotics Subjective ROS Limited/Unobtainable: Yes Allergies: Coded Allergies: No Known Allergies (Unverified , 02/05/17) Objective Vital Signs Last 24 Hour Vital Signs Date Time Temp Pulse Resp B/P (MAP) Pulse Ox O2 Delivery O2 Flow Rate FiO2 02/12/17 10:34 87 18 28 02/12/17 08:45 82 17 28 02/12/17 08:00 97.7 75 14 95/58 98 Mechanical Ventilator 02/12/17 08:00 28 02/12/17 08:00 78 02/12/17 06:43 75 18 28 02/12/17 05:02 88 16 28 02/12/17 04:00 28 02/12/17 04:00 97.8 87 15 101/56 99 Mechanical Ventilator 02/12/17 04:00 97.8 74 15 101/56 100 Mechanical Ventilator 02/12/17 03:45 89 02/12/17 02:59 90 16 28 02/12/17 01:30 86 16 28 02/12/17 00:00 98.7 74 13 123/70 100 Mechanical Ventilator 02/11/17 23:58 78 02/11/17 22:55 88 15 28 02/11/17 21:01 82 17 28 02/11/17 20:31 99.0 83 15 101/57 100 Mechanical Ventilator 02/11/17 20:00 28 02/11/17 19:59 84 02/11/17 19:30 83 18 28 02/11/17 16:50 77 16 28 02/11/17 16:00 28 02/11/17 16:00 98.1 78 16 106/65 97 Mechanical Ventilator 02/11/17 16:00 74 02/11/17 15:36 72 16 28 02/11/17 12:48 80 14 28 02/11/17 12:00 80 02/11/17 12:00 28 02/11/17 12:00 97.8 84 14 97/57 97 Mechanical Ventilator Height (Feet): 5 Height (Inches): 2.00 Weight (Pounds): 132 HEENT: status post trach Respiratory/Chest: lungs clear Cardiovascular: normal rate, regular rhythm, no gallop/murmur Abdomen: soft, non tender, other - GT Extremities: no edema Microbiology Date/Time Source Procedure Growth Status 02/10/17 11:00 Stool Clostridium difficile Toxin Assay - Final Complete Laboratory Tests Test 02/12/17 04:50 White Blood Count 8.4 K/UL (4.8-10.8) Red Blood Count 3.42 M/UL (4.70-6.10) L Hemoglobin 9.1 G/DL (14.2-18.0) L Hematocrit 28.4 % (42.0-52.0) L Mean Corpuscular Volume 83 FL (80-99) Mean Corpuscular Hemoglobin 26.5 PG (27.0-31.0) L Mean Corpuscular Hemoglobin Concent 32.0 G/DL (32.0-36.0) Red Cell Distribution Width 16.7 % (11.6-14.8) H Platelet Count 279 K/UL (150-450) Mean Platelet Volume 5.6 FL (6.5-10.1) L Neutrophils (%) (Auto) 59.4 % (45.0-75.0) Lymphocytes (%) (Auto) 21.0 % (20.0-45.0) Monocytes (%) (Auto) 7.1 % (1.0-10.0) Eosinophils (%) (Auto) 11.9 % (0.0-3.0) H Basophils (%) (Auto) 0.7 % (0.0-2.0) Sodium Level 138 mEQ/L (135-145) Potassium Level 3.8 mEQ/L (3.4-4.9) Chloride Level 102 mEQ/L (98-107) Carbon Dioxide Level 28 mEQ/L (20-30) Anion Gap 8 (5-15) Blood Urea Nitrogen 10 mg/dL (7-23) Creatinine 0.3 mg/dL (0.7-1.2) L Estimat Glomerular Filtration Rate > 60 mL/min (>60) Glucose Level 104 mg/dL (74-106) Calcium Level 8.6 mg/dL (8.6-10.2) Total Bilirubin < 0.2 mg/dL (0.0-1.2) Aspartate Amino Transf (AST/SGOT) 19 U/L (5-40) Alanine Aminotransferase (ALT/SGPT) 16 U/L (3-41) Alkaline Phosphatase 85 U/L (40-129) Total Protein 7.1 g/dL (6.6-8.7) Albumin 2.2 g/dL (3.5-5.2) L Globulin 4.9 g/dL Albumin/Globulin Ratio 0.4 (1.0-2.7) L FARAZ PHAN Feb 12, 2017 11:25"
--- NOTE | 2017-02-12 12:08 | Pulmonology Progress Note ---
Assessment/Plan Assessment/Plan IMPRESSION Respiratory Failure Trach Contractures multiple decubs GT Seizure disorder moderate protein calorie malnutrition chronic encephalopathy anemia UTI PLAN care noted and discussed IV antibiotics per ID noted MDR and VRE- colonized respiratory care as is Ventilatory care noted SNF meds supportive care suction as needed wound care noted rectal tube oxygen therapy prognosis guarded hope to transfer to snf needs extensive wound care impression, plan, and exam edited and reviewed in detail care discussed with RN Subjective ROS Limited/Unobtainable: Yes Allergies: Coded Allergies: No Known Allergies (Unverified , 02/05/17) Subjective care noted d/w awaiting return to SNF isolation needed Objective Last 24 Hour Vital Signs Date Time Temp Pulse Resp B/P (MAP) Pulse Ox O2 Delivery O2 Flow Rate FiO2 02/12/17 10:34 87 18 28 02/12/17 08:45 82 17 28 02/12/17 08:00 97.7 75 14 95/58 98 Mechanical Ventilator 02/12/17 08:00 28 02/12/17 08:00 78 02/12/17 06:43 75 18 28 02/12/17 05:02 88 16 28 02/12/17 04:00 28 02/12/17 04:00 97.8 87 15 101/56 99 Mechanical Ventilator 02/12/17 04:00 97.8 74 15 101/56 100 Mechanical Ventilator 02/12/17 03:45 89 02/12/17 02:59 90 16 02/12/17 01:30 86 16 28 02/12/17 00:00 98.7 74 13 123/70 100 Mechanical Ventilator 02/11/17 23:58 78 02/11/17 22:55 88 15 28 02/11/17 21:01 82 17 28 02/11/17 20:31 99.0 83 15 101/57 100 Mechanical Ventilator 02/11/17 20:00 28 02/11/17 19:59 84 02/11/17 19:30 83 18 28 02/11/17 16:50 77 16 28 02/11/17 16:00 28 02/11/17 16:00 98.1 78 16 106/65 97 Mechanical Ventilator 02/11/17 16:00 74 02/11/17 15:36 72 16 28 02/11/17 12:48 80 14 28 Intake and Output 02/12/17 02/13/17 19:00 07:00 Intake Total 482.5 ml Balance 482.5 ml IV Total 482.5 ml Objective WDWN chronically ill NAD coarse breath sounds bilaterally without rhonchi or wheeze; same [id number] without MRG NABS nontender no HSM; GT no CCE contractures poor LOC trach nonfocal Microbiology Date/Time Source Procedure Growth Status 02/10/17 11:00 Stool Clostridium difficile Toxin Assay - Final Complete Laboratory Tests 02/12/17 04:50: White Blood Count 8.4, Red Blood Count 3.42L, Hemoglobin 9.1L, Hematocrit 28.4L , Mean Corpuscular Volume 83, Mean Corpuscular Hemoglobin 26.5L, Mean Corpuscular Hemoglobin Concent 32.0, Red Cell Distribution Width 16.7H, Platelet Count 279, Mean Platelet Volume 5.6L, Neutrophils (%) (Auto) 59.4, Lymphocytes (%) (Auto) 21.0, Monocytes (%) (Auto) 7.1, Eosinophils (%) (Auto) 11.9H, Basophils (%) (Auto) 0.7, Sodium Level 138, Potassium Level 3.8, Chloride Level 102, Carbon Dioxide Level 28, Anion Gap 8, Blood Urea Nitrogen 10 , Creatinine 0.3L, Estimat Glomerular Filtration Rate > 60, Glucose Level 104, Calcium Level 8.6, Total Bilirubin < 0.2, Aspartate Amino Transf (AST/SGOT) 19, Alanine Aminotransferase (ALT/SGPT) 16, Alkaline Phosphatase 85, Total Protein 7.1, Albumin 2.2L, Globulin 4.9, Albumin/Globulin Ratio 0.4L Current Medications Medications (Trade) Dose Ordered Sig/Mehdi Route PRN Reason Start Time Stop Time Status Last Admin Dose Admin Acetaminophen (Tylenol) 650 mg EVERY 6 HOURS PRN GT mild pain 02/06/17 18:00 03/08/17 17:59 Acetaminophen/ Hydrocodone Bitart (Page 10/325) 1 ea EVERY 12 HOURS PRN GT Pain Scale (6-10) 02/06/17 21:00 02/13/17 20:59 Ascorbic Acid (Vitamin C) 500 mg DAILY GT 02/07/17 09:00 03/09/17 08:59 02/12/17 08:14 Heparin Sodium (Porcine) (Heparin 5000 units/ml) 5,000 units EVERY 12 HOURS SUBQ 02/06/17 21:00 03/08/17 20:59 02/12/17 08:16 Lansoprazole (Prevacid) 30 mg Q12HR GT 02/06/17 21:00 03/08/17 20:59 02/12/17 08:14 Levetiracetam (Keppra) 500 mg Q12HR GT 02/06/17 21:00 03/08/17 20:59 02/12/17 08:14 Lorazepam (Ativan) 0.5 mg Q6H PRN GT For Anxiety 02/06/17 16:00 02/13/17 15:59 Magnesium Oxide (Mag-Ox 400mg) 400 mg DAILY GT 02/07/17 09:00 03/09/17 08:59 02/12/17 08:14 Midodrine (Pro-Amatine) 10 mg EVERY 8 HOURS ORAL 02/07/17 22:00 03/09/17 21:59 02/12/17 06:19 Multivitamins (Multivitamins W/ Minerals 15ml Liquid) 5 ml DAILY GT 02/07/17 09:00 03/09/17 08:59 02/12/17 08:15 Ondansetron HCl (Zofran ODT) 4 mg Q6H PRN ORAL Nausea & Vomiting 02/06/17 16:00 03/08/17 15:59 Sodium Chloride 1,000 ml @ 100 mls/hr Q10H IV 02/06/17 13:45 03/08/17 13:44 02/12/17 08:15 Sodium Chloride 1,000 ml @ 999 mls/hr Q1H1M PRN IV For hypotension 02/07/17 21:30 03/09/17 21:29 02/07/17 21:40 Zinc Sulfate (Zinc Sulfate) 220 mg DAILY GT 02/07/17 09:00 03/09/17 08:59 02/12/17 08:14 SANDRINE WEI Feb 12, 2017 12:08
[2017-02-12] MEDS ORDERED: Tubing IV Secondary IV ONE (16:49)
[2017-02-12] MEDS ORDERED: D5NS 1000ml IV ONE (16:49)
[2017-02-12] MEDS ORDERED: Sterile Water Irrig 1000ml IRRIG ONE (16:49)
[2017-02-12] MEDS ORDERED: NS 275ml ONE (16:49)
[2017-02-12] MEDS ORDERED: 1/2 NS 1000ml IV ONE (16:49)
[2017-02-12] MEDS: Midodrine 10mg tab GT SCH (21:45)
[2017-02-13] VITALS (8 sets, daily range): BP systolic 84–122; BP diastolic 50–69
[2017-02-13] MEDS: Midodrine 10mg tab GT SCH ×3 (05:42→21:03)
--- NOTE | 2017-02-13 08:36 | General Progress Note ---
Assessment/Plan Problem List: (1) Toxic metabolic encephalopathy ICD Codes: G92 - Toxic encephalopathy SNOMED: 767680691 (2) Chronic respiratory failure ICD Codes: J96.10 - Chronic respiratory failure, unspecified whether with hypoxia or hypercapnia SNOMED: 50902757, 67863014 (3) Tracheostomy dependence ICD Codes: Z93.0 - Tracheostomy status SNOMED: 530811746, 509596736 (4) Infected decubitus ulcer ICD Codes: L89.90 - Pressure ulcer of unspecified site, unspecified stage; L08.9 - Local infection of the skin and subcutaneous tissue, unspecified SNOMED: 147720844, 53913662 (5) Sepsis associated hypotension ICD Codes: A41.9 - Sepsis, unspecified organism SNOMED: 83950285 Status: stable Assessment/Plan iv abx per vent resp rx gt feeds/monitor residuals wound care. wound care consult noted. poor prognosis ivf and midodrine dc planning if bp stable cont current rx Subjective ROS Limited/Unobtainable: Yes Constitutional: Reports: malaise, weakness HEENT: Reports: no symptoms Cardiovascular: Reports: no symptoms Respiratory: Reports: sputum Gastrointestinal/Abdominal: Reports: difficulty swallowing Genitourinary: Reports: no symptoms Neurologic/Psychiatric: Reports: pre-existing deficit Endocrine: Reports: no symptoms Hematologic/Lymphatic: Reports: no symptoms Allergies: Coded Allergies: No Known Allergies (Unverified , 02/05/17) All Systems: reviewed and negative except above Subjective no events. on the vent. stable. no fevers. wound eval noted. on feeds and abx dc held yesterday due to low bp. currently on ivf and midodrine. bp still on the low side. Objective Last 24 Hour Vital Signs Date Time Temp Pulse Resp B/P (MAP) Pulse Ox O2 Delivery O2 Flow Rate FiO2 02/13/17 07:00 99/65 02/13/17 05:15 75 12 28 02/13/17 04:00 98.1 76 14 84/64 99 Mechanical Ventilator 28 02/13/17 04:00 28 02/13/17 03:44 86 02/13/17 03:20 82 12 28 02/13/17 01:43 98.9 02/13/17 01:18 99 16 28 02/13/17 00:40 98.9 88 14 104/59 99 Mechanical Ventilator 02/13/17 00:00 28 02/12/17 23:46 90 02/12/17 23:20 99 16 28 02/12/17 21:19 98 17 28 02/12/17 20:00 28 02/12/17 20:00 98.6 103 17 90/57 100 Mechanical Ventilator 02/12/17 19:37 100 02/12/17 19:04 99 18 28 02/12/17 17:44 102/61 02/12/17 16:37 96 18 28 02/12/17 16:19 92 94/54 02/12/17 16:00 28 02/12/17 16:00 97.5 94 18 106/60 99 Mechanical Ventilator 02/12/17 16:00 95 02/12/17 15:02 95 18 28 02/12/17 13:30 64 83/52 02/12/17 12:50 89 102/62 02/12/17 12:48 89 16 02/12/17 12:00 93 02/12/17 12:00 98.4 93 15 85/46 98 Mechanical Ventilator 02/12/17 12:00 28 02/12/17 10:34 87 18 02/12/17 08:45 82 17 28 Height (Feet): 5 Height (Inches): 2.00 Weight (Pounds): 133 Objective General Appearance: WD/WN, lethargic, confused, cachetic Neck: supple Cardiovascular: regular rhythm Respiratory/Chest: chest wall non-tender, lungs clear, normal breath sounds Abdomen: normal bowel sounds, non tender, soft, no organomegaly Edema: no edema noted Arm (L), no edema noted Arm (R), no edema noted Leg (L), no edema noted Leg (R), no edema noted Pedal (L), no edema noted Pedal (R), no edema noted Generalized Neurologic: unresponsive, aphasia BRENDA VELASQUEZ Feb 13, 2017 08:36
[2017-02-13] MEDS: Multivitamins W/Minerals 15 ML UDC GT SCH (09:00)
--- NOTE | 2017-02-13 09:09 | Pulmonology Progress Note ---
Assessment/Plan Assessment/Plan IMPRESSION Respiratory Failure Trach Contractures multiple decubs GT Seizure disorder moderate protein calorie malnutrition chronic encephalopathy anemia UTI orthostatic hypotension PLAN care noted and discussed IV antibiotics off MDR and VRE- colonized respiratory care as is Ventilatory care noted SNF meds supportive care ongoing pressure ulcer monitoring and therapy rectal tube if needed oxygen therapy prognosis guarded transfer to SNF needs extensive wound care impression, plan, and exam edited and reviewed in detail care discussed with RN Subjective ROS Limited/Unobtainable: Yes Allergies: Coded Allergies: No Known Allergies (Unverified , 02/05/17) Subjective care noted stable awaiting return to SNF off antibiotics Objective Last 24 Hour Vital Signs Date Time Temp Pulse Resp B/P (MAP) Pulse Ox O2 Delivery O2 Flow Rate FiO2 02/13/17 08:36 79 02/13/17 08:00 98.1 72 15 95/53 100 Mechanical Ventilator 02/13/17 07:00 99/65 02/13/17 05:15 75 12 28 02/13/17 04:00 98.1 76 14 84/64 99 Mechanical Ventilator 02/13/17 04:00 02/13/17 03:44 86 02/13/17 03:20 82 12 28 02/13/17 01:43 98.9 02/13/17 01:18 99 16 28 02/13/17 00:40 98.9 88 14 104/59 99 Mechanical Ventilator 02/13/17 00:00 28 02/12/17 23:46 90 02/12/17 23:20 99 16 28 02/12/17 21:19 98 17 28 02/12/17 20:00 28 02/12/17 20:00 98.6 103 17 90/57 100 Mechanical Ventilator 02/12/17 19:37 100 02/12/17 19:04 99 18 28 02/12/17 17:44 102/61 02/12/17 16:37 96 18 28 02/12/17 16:19 92 94/54 02/12/17 16:00 28 02/12/17 16:00 97.5 94 18 106/60 99 Mechanical Ventilator 02/12/17 16:00 95 02/12/17 15:02 95 18 28 02/12/17 13:30 64 83/52 02/12/17 12:50 89 102/62 8/25/17 12:48 89 16 28 02/12/17 12:00 93 02/12/17 12:00 98.4 93 15 85/46 98 Mechanical Ventilator 28 02/12/17 12:00 28 02/12/17 10:34 87 18 28 Objective WDWN chronically ill NAD coarse breath sounds bilaterally without rhonchi or wheeze; same as prior [id number] without MRG NABS nontender no HSM; GT no CCE contractures reduced ROM poor LOC trach nonfocal Microbiology Date/Time Source Procedure Growth Status 02/10/17 11:00 Stool Clostridium difficile Toxin Assay - Final Complete Current Medications Medications (Trade) Dose Ordered Sig/Mehdi Route PRN Reason Start Time Stop Time Status Last Admin Dose Admin Acetaminophen (Tylenol) 650 mg EVERY 6 HOURS PRN GT mild pain 02/06/17 18:00 03/08/17 17:59 Acetaminophen/ Hydrocodone Bitart ([place] 10/325) 1 ea EVERY 12 HOURS PRN GT Pain Scale (6-10) 02/06/17 21:00 02/13/17 20:59 02/13/17 00:44 Ascorbic Acid (Vitamin C) 500 mg DAILY GT 02/07/17 09:00 03/09/17 08:59 02/12/17 08:14 Heparin Sodium (Porcine) (Heparin 5000 units/ml) 5,000 units EVERY 12 HOURS SUBQ 02/06/17 21:00 03/08/17 20:59 02/12/17 21:47 Lansoprazole (Prevacid) 30 mg Q12HR GT 02/06/17 21:00 03/08/17 20:59 02/12/17 21:45 Levetiracetam (Keppra) 500 mg Q12HR GT 02/06/17 21:00 03/08/17 20:59 02/12/17 21:45 Lorazepam (Ativan) 0.5 mg Q6H PRN GT For Anxiety 02/06/17 16:00 02/13/17 15:59 Magnesium Oxide (Mag-Ox 400mg) 400 mg DAILY GT 02/07/17 09:00 03/09/17 08:59 02/12/17 08:14 Midodrine (Pro-Amatine) 10 mg EVERY 8 HOURS GT 02/12/17 22:00 03/09/17 21:59 02/13/17 05:42 Multivitamins (Multivitamins W/ Minerals 15ml Liquid) 5 ml DAILY GT 02/07/17 09:00 03/09/17 08:59 02/12/17 08:15 Ondansetron HCl (Zofran ODT) 4 mg Q6H PRN GT Nausea & Vomiting 02/12/17 16:00 03/08/17 15:59 Sodium Chloride 1,000 ml @ 100 mls/hr Q10H IV 02/06/17 13:45 03/08/17 13:44 02/13/17 05:41 Sodium Chloride 1,000 ml @ 999 mls/hr Q1H1M PRN IV For hypotension 02/07/17 21:30 03/09/17 21:29 02/12/17 14:45 Zinc Sulfate (Zinc Sulfate) 220 mg DAILY GT 02/07/17 09:00 03/09/17 08:59 02/12/17 08:14 SANDRINE WEI Feb 13, 2017 09:09
[2017-02-13] MEDS: Heparin 5000 units/ml inj SUBQ SCH ×2 (10:33→20:59)
[2017-02-13] MEDS: Magnesium Oxide 400mg tab GT SCH (10:34)
[2017-02-13] MEDS: Zinc Sulfate 220mg cap GT SCH (10:34)
[2017-02-13] MEDS: Ascorbic Acid 500mg tab GT SCH (10:34)
[2017-02-13] MEDS ORDERED: NS 275ml ONE (13:34)
[2017-02-14] VITALS (11 sets, daily range): BP systolic 86–123; BP diastolic 56–74
[2017-02-14] MEDS: Midodrine 10mg tab GT SCH ×2 (06:00→12:28)
[2017-02-14] MEDS: Magnesium Oxide 400mg tab GT SCH (08:41)
[2017-02-14] MEDS: Zinc Sulfate 220mg cap GT SCH (08:41)
[2017-02-14] MEDS: Ascorbic Acid 500mg tab GT SCH (08:41)
[2017-02-14] MEDS: Heparin 5000 units/ml inj SUBQ SCH (08:43)
[2017-02-14] MEDS: Multivitamins W/Minerals 15 ML UDC GT SCH (09:00)
--- NOTE | 2017-02-14 10:59 | General Progress Note ---
Assessment/Plan Problem List: (1) Toxic metabolic encephalopathy ICD Codes: G92 - Toxic encephalopathy SNOMED: 583669906 (2) Chronic respiratory failure ICD Codes: J96.10 - Chronic respiratory failure, unspecified whether with hypoxia or hypercapnia SNOMED: 89494365, 18911980 (3) Tracheostomy dependence ICD Codes: Z93.0 - Tracheostomy status SNOMED: 569405171, 438770952 (4) Infected decubitus ulcer ICD Codes: L89.90 - Pressure ulcer of unspecified site, unspecified stage; L08.9 - Local infection of the skin and subcutaneous tissue, unspecified SNOMED: 584497404, 54863420 (5) Sepsis associated hypotension ICD Codes: A41.9 - Sepsis, unspecified organism SNOMED: 97563396 Status: stable, progressing Assessment/Plan iv abx per ID vent. no wean resp rx gt feeds/monitor residuals wound care. wound care consult noted. poor prognosis ivf and midodrine dc planning if bp stable cont current rx Subjective ROS Limited/Unobtainable: Yes Constitutional: Reports: malaise, weakness HEENT: Reports: no symptoms Cardiovascular: Reports: no symptoms Respiratory: Reports: sputum Gastrointestinal/Abdominal: Reports: difficulty swallowing Genitourinary: Reports: no symptoms Neurologic/Psychiatric: Reports: pre-existing deficit Endocrine: Reports: no symptoms Hematologic/Lymphatic: Reports: anemia Allergies: Coded Allergies: No Known Allergies (Unverified , 02/05/17) All Systems: reviewed and negative except above Subjective no events. on the vent. unresponsive at baseline. no fevers. BP stable. appears to run low. tolerating feeds Objective Last 24 Hour Vital Signs Date Time Temp Pulse Resp B/P (MAP) Pulse Ox O2 Delivery O2 Flow Rate FiO2 02/14/17 09:23 81 12 28 02/14/17 08:00 77 02/14/17 08:00 97.7 98 15 98/63 100 Mechanical Ventilator 02/14/17 08:00 28 02/14/17 07:25 90 16 28 02/14/17 05:08 90 14 02/14/17 04:00 97.9 84 12 109/67 100 Mechanical Ventilator 02/14/17 04:00 92 02/14/17 04:00 28 02/14/17 02:59 84 14 02/14/17 00:49 81 14 28 8/27/17 00:00 81 02/14/17 00:00 98.2 85 15 95/58 99 Mechanical Ventilator 28 02/14/17 00:00 28 02/13/17 22:43 88 14 28 02/13/17 20:49 88 17 28 02/13/17 20:00 28 02/13/17 20:00 99.4 82 15 91/50 99 Mechanical Ventilator 02/13/17 20:00 85 02/13/17 18:37 88 14 28 02/13/17 17:30 84 12 28 02/13/17 16:00 28 02/13/17 16:00 80 02/13/17 16:00 98.1 76 15 122/61 99 Mechanical Ventilator 02/13/17 15:30 86 15 28 02/13/17 15:02 76 18 109/69 100 Mechanical Ventilator 02/13/17 13:30 76 13 28 02/13/17 12:00 97.9 80 17 97/63 100 Mechanical Ventilator 02/13/17 12:00 28 02/13/17 12:00 83 02/13/17 11:30 80 14 28 Intake and Output 02/14/17 02/15/17 19:00 07:00 Intake Total 100 ml Balance 100 ml IV Total 100 ml Height (Feet): 5 Height (Inches): 2.00 Weight (Pounds): 132 Objective General Appearance: WD/WN, lethargic, confused, cachetic Neck: supple Cardiovascular: regular rhythm Respiratory/Chest: chest wall non-tender, lungs clear, normal breath sounds Abdomen: normal bowel sounds, non tender, soft, no organomegaly Edema: no edema noted Arm (L), no edema noted Arm (R), no edema noted Leg (L), no edema noted Leg (R), no edema noted Pedal (L), no edema noted Pedal (R), no edema noted Generalized Neurologic: unresponsive, aphasia BRENDA VELASQUEZ Feb 14, 2017 10:59
--- NOTE | 2017-02-14 13:01 | Pulmonology Progress Note ---
Assessment/Plan Assessment/Plan IMPRESSION Respiratory Failure Trach Contractures multiple decubs GT Seizure disorder moderate protein calorie malnutrition chronic encephalopathy anemia UTI orthostatic hypotension PLAN care noted and discussed IV antibiotics off MDR and VRE- colonized respiratory care as is Ventilatory care noted SNF meds supportive care ongoing pressure ulcer monitoring and therapy rectal tube if needed oxygen therapy prognosis guarded transfer to SNF once bp stable needs extensive wound care on midodrine; consider florinef impression, plan, and exam edited and reviewed in detail care discussed with RN Subjective ROS Limited/Unobtainable: Yes Allergies: Coded Allergies: No Known Allergies (Unverified , 02/05/17) Subjective care noted stable awaiting return to SNF off antibiotics labile BP Objective Last 24 Hour Vital Signs Date Time Temp Pulse Resp B/P (MAP) Pulse Ox O2 Delivery O2 Flow Rate FiO2 02/14/17 12:00 98.1 85 17 110/67 99 Mechanical Ventilator 02/14/17 11:41 84 104/66 02/14/17 11:22 87 94/56 02/14/17 11:19 85 86/57 02/14/17 11:16 84 90/59 02/14/17 11:02 20 20 28 02/14/17 10:23 85 110/67 02/14/17 09:23 81 12 28 02/14/17 08:00 77 02/14/17 08:00 97.7 98 15 98/63 100 Mechanical Ventilator 02/14/17 08:00 28 02/14/17 07:25 90 16 28 02/14/17 05:08 90 14 28 02/14/17 04:00 97.9 84 12 109/67 100 Mechanical Ventilator 02/14/17 04:00 92 02/14/17 04:00 28 02/14/17 02:59 84 14 02/14/17 00:49 81 14 28 02/14/17 00:00 81 02/14/17 00:00 98.2 85 15 95/58 99 Mechanical Ventilator 02/14/17 00:00 28 02/13/17 22:43 88 14 28 02/13/17 20:49 88 17 28 02/13/17 20:00 28 02/13/17 20:00 99.4 82 15 91/50 99 Mechanical Ventilator 02/13/17 20:00 85 02/13/17 18:37 88 14 28 02/13/17 17:30 84 12 28 02/13/17 16:00 28 02/13/17 16:00 80 02/13/17 16:00 98.1 76 15 122/61 99 Mechanical Ventilator 28 02/13/17 15:30 86 15 28 02/13/17 15:02 76 18 109/69 100 Mechanical Ventilator 28 02/13/17 13:30 76 13 28 Intake and Output 02/14/17 02/15/17 19:00 07:00 Intake Total 300 ml Balance 300 ml IV Total 300 ml Objective WDWN chronically ill NAD coarse breath sounds bilaterally without rhonchi or wheeze; same as prior [id number] without MRG NABS nontender no HSM; GT no CCE contractures reduced ROM poor LOC trach nonfocal Current Medications Medications (Trade) Dose Ordered Sig/Mehdi Route PRN Reason Start Time Stop Time Status Last Admin Dose Admin Acetaminophen (Tylenol) 650 mg EVERY 6 HOURS PRN GT mild pain 02/06/17 18:00 03/08/17 17:59 Ascorbic Acid (Vitamin C) 500 mg DAILY GT 02/07/17 09:00 03/09/17 08:59 02/14/17 08:41 Heparin Sodium (Porcine) (Heparin 5000 units/ml) 5,000 units EVERY 12 HOURS SUBQ 02/06/17 21:00 03/08/17 20:59 02/14/17 08:43 Lansoprazole (Prevacid) 30 mg Q12HR GT 02/06/17 21:00 03/08/17 20:59 02/14/17 08:40 Levetiracetam (Keppra) 500 mg Q12HR GT 02/06/17 21:00 03/08/17 20:59 02/14/17 08:41 Magnesium Oxide (Mag-Ox 400mg) 400 mg DAILY GT 02/07/17 09:00 03/09/17 08:59 02/14/17 08:41 Midodrine (Pro-Amatine) 10 mg EVERY 8 HOURS GT 02/12/17 22:00 03/09/17 21:59 02/14/17 12:28 Multivitamins (Multivitamins W/ Minerals 15ml Liquid) 5 ml DAILY GT 02/07/17 09:00 03/09/17 08:59 02/12/17 08:15 Ondansetron HCl (Zofran ODT) 4 mg Q6H PRN GT Nausea & Vomiting 02/12/17 16:00 03/08/17 15:59 Sodium Chloride 1,000 ml @ 100 mls/hr Q10H IV 02/06/17 13:45 03/08/17 13:44 02/14/17 11:14 Sodium Chloride 1,000 ml @ 999 mls/hr Q1H1M ONCE IV 02/14/17 13:00 02/14/17 14:00 UNV Sodium Chloride 1,000 ml @ 999 mls/hr Q1H1M PRN IV For hypotension 02/07/17 21:30 03/09/17 21:29 02/12/17 14:45 Zinc Sulfate (Zinc Sulfate) 220 mg DAILY GT 02/07/17 09:00 03/09/17 08:59 02/14/17 08:41 SANDRINE WEI Feb 14, 2017 13:01
[2017-02-14] MEDS ORDERED: 1/2 NS 1000ml IV ONE (16:47)
[2017-02-14] MEDS ORDERED: Tubing IV Secondary IV ONE (16:47)
--- NOTE | 2017-02-16 10:52 | Discharge Summary ---
Discharge Summary Hospital Course Date of Admission Feb 05, 2017 at 18:39 Date of Discharge Feb 14, 2017 at 16:48 Admitting Diagnosis SEVER SEPSIS HPI Llily Patel is a 66 year old male who was admitted on Feb 05, 2017 at 18: 39 for Severe Sepsis Hospital Course dc summary #[id number] Discharge Medications Continued Medications: Acetaminophen* (Acetaminophen 325MG Tablet*) 325 Mg Tablet 650 MG GT Q6H PRN for Mild Pain (Pain Scale 1-3), TAB Hydrocodone Bit/Acetaminophen 10-325* ([place] 10-325*) 1 Each Tablet 1 TAB GT EVERY 12 HOURS PRN for For Pain, #10 TAB 0 Refills PRN PAIN Levetiracetam* (Levetiracetam*) 500 Mg Tablet 500 MG GT TWICE A DAY, #60 TAB 0 Refills Midodrine* (Proamatine*) 10 Mg Tablet 10 MG GT THREE TIMES A DAY, TAB Multivitamin With Minerals (Multivitamins With Minerals*) 1 Each Tablet 1 TAB GT DAILY, TAB Zinc Gluconate-Zinc Picolinate (Zinc) 30 Mg Capsule 220 MG GT DAILY, CAP Discharge Condition Upon Discharge: stable Discharge Disposition Patient was discharged to SNF/Subacute Facility(03) Discharge Diagnoses: Discharge Instructions Discharge Instructions Special Instructions I have been assigned to complete a D/C Summary on this account. I was not involved in the patient management Alena Joel NP ([place]) Feb 16, 2017 10:52
--- NOTE | 2017-02-17 02:15 | Discharge Summary 2 SIG ---
DATE OF ADMISSION: 02/05/2017 DATE OF DISCHARGE: 02/14/2017 REASON FOR ADMISSION: 66-year-old male with chronic respiratory failure, ventilator dependent with tracheostomy, dysphagia, G-tube, seizure disorder, chronic anoxic encephalopathy, multiple decubitus, history of DVT, and status post IVC filter, was sent from the subacute facility for evaluation due to hypotension and fever. Upon evaluation in the emergency room, WBC -11.1. Urinalysis grossly consistent with UTI. Chest x-ray with possible evidence of pneumonia. Lactic acid within normal limits. Blood pressure -86/50 . No fever. EKG showed normal sinus rhythm. The patient was admitted for further management. ADMITTING DIAGNOSES: 1. Sepsis. 2. Hypotension. 3. Chronic respiratory failure with ventilator-dependent respiratory failure and tracheostomy status. 4. Toxic metabolic encephalopathy. 5. Multiple decubitus, present on admission. HOSPITAL COURSE: The patient was admitted to direct observational unit. Pulmonology and ID consult were requested. Ventilator support provided. Tracheostomy care provided. Pulmonary toilet provided as needed. Baseline ABG was stable on current ventilator settings. Settings were kept as is and titrated as needed. The patient was treated for presumed aspiration pneumonia, status post treatment. Follow up chest x-ray without significant changes. ID doctor was involved in the care of the patient. Blood cultures were negative. Urine culture revealed Proteus ESBL and Providencia. Stool for C. difficile was negative. Sacral wound culture grew Acinetobacter MDR and MRSA. The patient status post treatment for UTI and pneumonia. ID recommended to observe the patient off antibiotics. No leukocytosis. No fever. Blood pressure was closely monitored. The patient was started on midodrine, and blood pressure improved. ECHO revealed preserved ejection fraction of 55% to 60 % and mild left ventricular diastolic dysfunction. Plastic surgeon seen and evaluated the patient due to the multiple decubitus ulcers, present on admission. According to plastic surgery evaluation, the patient was a poor surgical candidate. The patient with multiple large stage IV pressure ulcers. He had a very poor prognosis for the healing given ulcer size, depth, and locations along with the low albumin and flexion contractures. Plastic surgeon further recommended to be aggressive with offloading and optimize nutrition. Ischial ulcer would benefit from Santyl to enzymatically debridement of the fibrotic debris at the basis. Again, he concluded that the patient was a poor surgical candidate and recommended conservative management. Wound care nurse seen and evaluated the patient. Wound care provided as per wound care nurse recommendation. Strict aspiration precautions were maintained. G-tube feeding provided. The patient was able to tolerate tube feeding. Seizure precaution were maintained. No seizure activity, while in the hospital. The patient was stable for discharge. DISCHARGE DIAGNOSES: 1. Sepsis. 2. Complicated urinary tract infection with Proteus extended-spectrum beta-lactamases and Providencia, status post treatment. 3. Probable aspiration pneumonia, status post treatment. 4. Chronic respiratory failure with ventilator-dependent respiratory failure and tracheostomy status. 5. Toxic metabolic encephalopathy. 6. Hypotension. 7. Multiple decubitus ulcers, present on admission. 8. Seizure disorder. 9. Dysphagia, gastrostomy tube. 10. Moderate protein-calorie malnutrition. 11. Functional quadriplegia. 12. History of deep venous thrombosis, status post inferior vena cava filter. DISCHARGE MEDICATIONS: See medication reconciliation list. DISCHARGE INSTRUCTIONS: The patient was discharged to sub-acute half-way facility. Follow up with medical doctor and cut roll machine operator in the facility. Eitan Jin M.D. I have been assigned to dictate discharge summary on this account and I was not involved in the patient's management. Alena Lozanokinga N.PGil MENDEZ: Matilda JOB#: [id number] CC: [id number]
== END 2017-02-14 16:48 | DRG 870 ==
LOC: EDBD 17:36 → EMR 18:35 → ICU 18:39 → EDBEDREQ 18:43 → ICU 19:27 → 2W 02-06 13:46
PROC: 5A1955Z Respiratory Ventilation, Greater than 96 Consecutive Hours (ICD-10-PCS; principal; 2017-02-05)
DX: A41.9 Sepsis, unspecified organism (principal); G92 Toxic encephalopathy; J69.0 Pneumonitis due to inhalation of food and vomit; L89.154 Pressure ulcer of sacral region, stage 4; G93.1 Anoxic brain damage, not elsewhere classified; L89.214 Pressure ulcer of right hip, stage 4; L89.894 Pressure ulcer of other site, stage 4; L89.224 Pressure ulcer of left hip, stage 4; L89.324 Pressure ulcer of left buttock, stage 4; R53.2 Functional quadriplegia; L89.524 Pressure ulcer of left ankle, stage 4; L89.514 Pressure ulcer of right ankle, stage 4; Z99.11 Dependence on respirator [ventilator] status; E44.0 Moderate protein-calorie malnutrition; J96.10 Chronic respiratory failure, unspecified whether with hypoxia or hypercapnia; N39.0 Urinary tract infection, site not specified; Z43.1 Encounter for attention to gastrostomy; L89.90 Pressure ulcer of unspecified site, unspecified stage; B96.4 Proteus (mirabilis) (morganii) as the cause of diseases classified elsewhere; B96.89 Other specified bacterial agents as the cause of diseases classified elsewhere; Z16.12 Extended spectrum beta lactamase (ESBL) resistance; Z43.0 Encounter for attention to tracheostomy; R13.10 Dysphagia, unspecified; Z86.718 Personal history of other venous thrombosis and embolism; G40.909 Epilepsy, unspecified, not intractable, without status epilepticus; Z16.24 Resistance to multiple antibiotics; B95.62 Methicillin resistant Staphylococcus aureus infection as the cause of diseases classified elsewhere; M24.50 Contracture, unspecified joint; D64.9 Anemia, unspecified; I69.30 Unspecified sequelae of cerebral infarction
CPT/HCPCS: 36415; 36600; 71010; 80048; 80053; 80202; 80299; 81003; 82550; 82553; 82803; 83605; 84484; 85025; 86850; 86900; 86901; 87040; 87070; 87081; 87086; 87181; 87205; 87324; 93005; 93306; 94002; 94003; 94664